=== PATIENT | female | born 1955 | race Caucasian/White ===

== ENCOUNTER 2016-12-12 14:18 | Emergency (ER) | payer BC ==
--- NOTE | 2016-12-12 15:33 | XR ---
EXAMINATION TYPE: XR chest 2V DATE OF EXAM: 12/12/2016 3:24 PM COMPARISON: Today HISTORY: Cough and short of breath TECHNIQUE: Frontal and lateral views of the chest are obtained. FINDINGS: Heart and mediastinum are normal. Lungs are clear. Diaphragm is normal. Bony thorax is int act. IMPRESSION: Normal chest. No change compared to outside exam at 2:00 PM today.
--- NOTE | 2016-12-12 16:15 | ED ---
General Adult HPI - General Chief complaint: Upper Respiratory Infection Stated complaint: Sent by [email or web address] Pneumonia Time Seen by Provider: 12/12/16 15:10 Source: patient, family Mode of arrival: ambulatory Limitations: no limitations - History of Present Illness Initial comments: 61-year-old female with past medical history of hypertension and hysterectomy presented for evaluation of upper respiratory infection symptoms. She states that last Tuesday she started having productive cough with sinus congestion and runny nose. She was seen at an urgent care and diagnosed with a URI/bronchitis and given prednisone and Z-Johnny. She is completed both the steroids and antibiotics but symptoms have continued with the exception that the cough is no longer productive. She was seen at [facility] today and they diagnosed her with pneumonia and center to this ED for further treatment and evaluation. She states that outside of the cough she does not have any shortness of breath or chest pain, nausea or vomiting, abdominal pain, fevers/ chills, dysuria, diarrhea/constipation. - Related Data Home Medications Medication Instructions Recorded Confirmed Azithromycin [Zithromax Z-pack] See Taper PO DAILY 12/12/16 12/12/16 Bisoprolol-Hctz 10-6.25 mg [Ziac 1 tab PO DAILY 12/12/16 12/12/16 10-6.25] Dextromethorphan Polistirex 60 mg PO Q12H PRN 12/12/16 12/12/16 [Delsym] Nebivolol HCl [Bystolic] 10 mg PO HS 12/12/16 12/12/16 SUMAtriptan SUCCINATE [Imitrex] 100 mg PO DAILY PRN 12/12/16 12/12/16 methylPREDNISolone [Medrol Dose See Taper PO DAILY 12/12/16 12/12/16 Pack] Allergies Allergy/AdvReac Type Severity Reaction Status Date / Time No Known Allergies Allergy Verified 12/12/16 15:36 Review of Systems ROS Statement: Those systems with pertinent positive or pertinent negative responses have been documented in the HPI. ROS Other: All systems not noted in ROS Statement are negative. Constitutional: Denies: fever, chills Eyes: Denies: eye pain, vision change ENT: Denies: ear pain, throat pain Respiratory: Reports: cough. Denies: dyspnea, wheezes, hemoptysis Cardiovascular: Denies: chest pain, palpitations, dyspnea on exertion, orthopnea Endocrine: Denies: fatigue, polydipsia, polyuria Gastrointestinal: Denies: abdominal pain, nausea, vomiting Genitourinary: Denies: urgency, dysuria Musculoskeletal: Denies: back pain, arthralgia, myalgia Skin: Denies: rash, lesions Neurological: Denies: headache, weakness, numbness, paresthesias Past Medical History Past Medical History: Hypertension History of Any Multi-Drug Resistant Organisms: None Reported Past Surgical History: Hysterectomy Past Psychological History: No Psychological Hx Reported Smoking Status: Former smoker Past Alcohol Use History: None Reported Past Drug Use History: None Reported General Exam Limitations: no limitations General appearance: alert, in no apparent distress Head exam: Present: atraumatic, normocephalic, normal inspection Eye exam: Present: normal appearance, PERRL, EOMI. Absent: scleral icterus, conjunctival injection, periorbital swelling ENT exam: Present: normal exam, mucous membranes moist Neck exam: Present: normal inspection. Absent: tenderness, meningismus, lymphadenopathy Respiratory exam: Present: normal lung sounds bilaterally. Absent: respiratory distress, wheezes, rales, rhonchi, stridor Cardiovascular Exam: Present: regular rate, normal rhythm, normal heart sounds. Absent: systolic murmur, diastolic murmur, rubs, gallop, clicks GI/Abdominal exam: Present: soft, normal bowel sounds. Absent: distended, tenderness, guarding, rebound, rigid Rectal exam: Present: deferred Extremities exam: Present: normal inspection, full ROM, normal capillary refill. Absent: tenderness, pedal edema, joint swelling, calf tenderness Back exam: Present: normal inspection Neurological exam: Present: alert, oriented X3, CN II-XII intact Psychiatric exam: Present: normal affect, normal mood Skin exam: Present: warm, dry, intact, normal color. Absent: rash Course Vital Signs 12/12/16 14:41 Temperature 98.5 F Pulse Rate 80 Respiratory 18 Rate Blood Pressure 130/76 O2 Sat by Pulse 94 L Oximetry EKG Findings - EKG Comments: EKG Findings:: Normal sinus rhythm with criteria for LVH and a ventricular rate of 74, NILSON 178, QRS 88, QT/QTC 394/437. Medical Decision Making - Medical Decision Making 61-year-old female presented for evaluation of URI symptoms and cough since last Tuesday. She has gone through a course of prednisone and a Z-Johnny with decrease in productivity of cough but otherwise symptoms remain the same. She was seen at [facility] today and diagnosed with pneumonia and sent to this facility. On physical examination she has clear lung sounds bilaterally and the rest of her physical exam is benign. Labs obtained which showed a positive influenza B as well as acute kidney injury. She was informed of these results and offered an IV fluid bolus but stated she would rather go home and taken her fluids orally. She was instructed on the importance of this and advised to follow-up with her primary care physician early this next week to reevaluate the kidney function. She was further advised to return to this facility if her symptoms should worsen or persist including but not limited to: Shortness of breath, intractable nausea and vomiting, dysuria, urinary retention, altered mental status, intractable abdominal pain. The patient acknowledged an understanding of this information and agreed with this plan of care. - Lab Data Result diagrams: 12/12/16 16:05 12/12/16 16:05 Lab Results 12/12/16 12/12/16 12/12/16 Range/Units 15:15 15:15 16:05 WBC (3.8-10.6) k/uL RBC (3.80-5.40) m/uL Hgb (11.4-16.0) gm/dL Hct (34.0-46.0) % MCV (80.0-100.0) fL MCH (25.0-35.0) pg MCHC (31.0-37.0) g/dL RDW (11.5-15.5) % Plt Count (150-450) k/uL Neutrophils % (Manual) % Band Neutrophils % % Lymphocytes % (Manual) % Monocytes % (Manual) % Neutrophils # (Manual) (1.3-7.7) k/uL Lymphocytes # (Manual) (1.0-4.8) k/uL Monocytes # (Manual) (0-1.0) k/uL Nucleated RBCs (0-0) /100 WBC Manual Slide Review Sodium 138 (137-145) mmol/L Potassium 3.9 (3.5-5.1) mmol/L Chloride 95 L (98-107) mmol/L Carbon Dioxide 29 (22-30) mmol/L Anion Gap 14 mmol/L BUN 39 H (7-17) mg/dL Creatinine 1.94 H (0.52-1.04) mg/dL Est GFR (MDRD) Af Amer 32 (>60 ml/min/1.73 sqM) Est GFR (MDRD) Non-Af 26 (>60 ml/min/1.73 sqM) Glucose 141 H (74-99) mg/dL Calcium 9.8 (8.4-10.2) mg/dL Influenza Type A RNA Not Detected (Not Detectd) Influenza Type B (PCR) Detected H (Not Detectd) Group A Strep Rapid Negative (Negative) 12/12/16 Range/Units 16:05 WBC 6.9 (3.8-10.6) k/uL RBC 5.76 H (3.80-5.40) m/uL Hgb 15.7 (11.4-16.0) gm/dL Hct 47.7 H (34.0-46.0) % MCV 82.9 (80.0-100.0) fL MCH 27.3 (25.0-35.0) pg MCHC 32.9 (31.0-37.0) g/dL RDW 13.6 (11.5-15.5) % Plt Count 320 (150-450) k/uL Neutrophils % (Manual) 44.0 % Band Neutrophils % 1.0 % Lymphocytes % (Manual) 54.0 % Monocytes % (Manual) 1.0 % Neutrophils # (Manual) 3.1 (1.3-7.7) k/uL Lymphocytes # (Manual) 3.7 (1.0-4.8) k/uL Monocytes # (Manual) 0.1 (0-1.0) k/uL Nucleated RBCs 0 (0-0) /100 WBC Manual Slide Review Performed Sodium (137-145) mmol/L Potassium (3.5-5.1) mmol/L Chloride (98-107) mmol/L Carbon Dioxide (22-30) mmol/L Anion Gap mmol/L BUN (7-17) mg/dL Creatinine (0.52-1.04) mg/dL Est GFR (MDRD) Af Amer (>60 ml/min/1.73 sqM) Est GFR (MDRD) Non-Af (>60 ml/min/1.73 sqM) Glucose (74-99) mg/dL Calcium (8.4-10.2) mg/dL Influenza Type A RNA (Not Detectd) Influenza Type B (PCR) (Not Detectd) Group A Strep Rapid (Negative) Disposition Clinical Impression: Influenza B, BISI (acute kidney injury), Dehydration Disposition: HOME SELF-CARE Condition: Stable Instructions: Influenza (ED), Dehydration (ED) Time of Disposition: 16:56
[2016-12-12 16:24] LABS: Aty Lym Flag Slight; CH 28.1; HCT 47.7 % (34.0-46.0); HDW 2.55; HGB 15.7 gm/dL (11.4-16.0); MCH 27.3 pg (25.0-35.0); MCHC 32.9 g/dL (31.0-37.0); MCV 82.9 fL (80.0-100.0); Mean Platelet Volume 6.8; RBC 5.76 m/uL (3.80-5.40); RDW 13.6 % (11.5-15.5); WBC 6.9 k/uL (3.8-10.6); WBC (Perox) 6.58
[2016-12-12 16:29] LABS: Calcium 9.8 mg/dL (8.4-10.2); Potassium 3.9 mmol/L (3.5-5.1)
[2016-12-12 16:45] LABS: Add Differential Manual Differential
[2016-12-12 16:48] LABS: Nucleated Red Blood Cells 0 /100 WBC (0-0); Total Cells Counted 100
[2016-12-12 16:49] LABS: Manual Review Performed
[2016-12-12 17:14] VITALS: BP 137/88; PULSE 78; RESP 20; TEMP 97.7
== END 2016-12-12 17:15 | disposition home or self-care (01) ==
LOC: EC 14:18
DX: J10.1 Influenza due to other identified influenza virus with other respiratory manifestations (principal); N17.9 Acute kidney failure, unspecified; E86.0 Dehydration; I10 Essential (primary) hypertension; Z87.891 Personal history of nicotine dependence; Z79.899 Other long term (current) drug therapy
CPT/HCPCS: 36415; 71020; 80048; 85025; 87081; 87430; 87502; 93005; 99283

== ENCOUNTER → 2017-08-24 | Outpatient (CLI) | payer BC ==
--- NOTE | 2017-08-25 13:16 | BD ---
EXAMINATION TYPE: MG DEXA axial skeleton. DATE OF EXAM: 08/24/2017 COMPARISON: NONE CLINICAL HISTORY: osteoporosis Height: 5'7 Weight: 242 FRAX RISK QUESTIONS: Alcohol (3 or more units per day): no Family History (Parent hip fracture): no Glucocorticoids (More than 3mos): no (Ex: prednisone, prednisolone, methylprednisolone, dexamethasone, and hydrocortisone). History of Fracture in Adulthood: yes Secondary Osteoporosis: 1. Type 1 Diabetes: no 2. Hyperthyroidism: no 3. Menopause before 45: no 4. Malnutrition: no 5. Chronic liver disease: no Rheumatoid Arthritis: no Current Tobacco Use: no RISK FACTORS HISTORY OF: History of Wrist Fracture: left When: 20 years ago Active: Diet low in dairy products/other sources of calcium: Postmenopausal woman: MEDICATIONS: Thyroid Medications: Which medication: Levothyroxine How Lon05/2017 Additional Medications: type 2 diabetes, blood pressure, Additional History: EXAM MEASUREMENTS: Bone mineral densitometry was performed using the [employer] System. Bone mineral density as measured about the Lumbar spine is: ----- L1-L4(G/cm2): 1.137 T Score Values are as follows: ----- L2: -0.8 ----- L3: -0.5 ----- L4: -0.1 ----- L1-L4: -0.4 Bone mineral density about the R hip (g/cm2): 0.985 Bone mineral density about the L hip (g/cm2): 0.936 T Score values are as follows: -----R Neck: -0.4 -----L Neck: -0.7 -----R Total: -0.3 -----L Total: 0.0 IMPRESSION: Normal (Values between +1 and -1 indicate normal bone mass). Consider repeating this study in 5 year s or sooner if there is some new clinical indication. NOTE: T-SCORE=SD OF THE YOUNG ADULT MEAN.
--- NOTE | 2017-08-26 11:00 | MM ---
Reason for exam: screening (asymptomatic). Last mammogram was performed 1 year and 1 month ago. History: Family history of breast cancer in maternal aunt and breast cancer in sister at age 50. Benign right US cyst aspiration of the right breast, June 01, 2010. Benign left mammotome panel of the left breast, September 19, 2006. Took hormonal contraceptives for 12 years beginning at age 18. Took estrogen for 6 years 2 months beginning at age 52. Physical Findings: A clinical breast exam by your physician is recommended on an annual basis and results should be correlated with mammographic findings. MG Screening Mammo w CAD Bilateral CC and MLO view(s) were taken. Prior study comparison: July 28, 2016, bilateral MG screening mammo w CAD. May 13, 2015, bilateral MG screening mammo w CAD. There are scattered fibroglandular densities. Finding: There are typically benign diffuse, regional, fine calcifications in the right breast. Previous mammotome biopsy in the left breast. No significant changes in finding since July 28, 2016 and May 13, 2015. ASSESSMENT: Benign, BI-RAD 2 RECOMMENDATION: Routine screening mammogram of both breasts in 1 year.
== END | disposition home or self-care (01) ==
LOC: RADMAMWWP 15:40
PROVIDERS: ATTEND Family Medicine
DX: Z12.31 Encounter for screening mammogram for malignant neoplasm of breast (principal); M81.0 Age-related osteoporosis without current pathological fracture
CPT/HCPCS: 77080; G0202

== ENCOUNTER 2017-11-18 07:09 | Day surgery (SDC) | payer BC ==
[2017-11-15 12:48] VITALS: BMI 36.1
[~2017-11-18 07:09] MED LIST: LACTATED RINGERS 1,000 ML IV SCH
[2017-11-18 07:33] VITALS: TEMP 96.2
[2017-11-18] MEDS ORDERED: LIDOCAINE 1% 20 ML VIAL (10MG/ML) FOR IV START INTRADERMA ONE (07:41)
[2017-11-18 07:45] LABS: Glucose,Whole Blood 119 mg/dL (75-99)
[2017-11-18] MEDS ORDERED: LIDOCAINE 1% INJ 10MG/ML (20 ML MDV) ONE (09:01)
[2017-11-18] MEDS ORDERED: PROPOFOL 10 MG/ML 20 ML VIAL IV ONE (09:01)
--- NOTE | 2017-11-18 09:16 | P.GSHP ---
History of Present Illness H&P Date: 11/18/17 Chief Complaint: Colon cancer screening Patient here today for colonoscopy. She had a cologgard test at home that was positive. Denies rectal bleeding or melena. No family history of colon cancer. Past Medical History Past Medical History: Diabetes Mellitus, Hypertension, Neurologic Disorder, Thyroid Disorder Additional Past Medical History / Comment(s): MIGRAINES History of Any Multi-Drug Resistant Organisms: None Reported Past Surgical History: Hysterectomy Past Anesthesia/Blood Transfusion Reactions: No Reported Reaction Smoking Status: Former smoker - Past Family History Sister(s) Family Medical History: Cancer Additional Family Medical History / Comment(s): SISTER # 1-BREAST. SISTER # 2 THYROID CANCER Daughter(s) Family Medical History: Cancer Medications and Allergies Home Medications Medication Instructions Recorded Confirmed Type SUMAtriptan SUCCINATE [Imitrex] 100 mg PO DAILY PRN 12/12/16 11/18/17 History Bisoprol/Hydrochlorothiazide 1 each PO DAILY 11/15/17 11/15/17 History [Bisoprolol-Hctz 10-6.25 mg Tab] Cinnamon Bark [Cinnamon] 1,000 mg PO DAILY 11/15/17 11/15/17 History Levothyroxine Sodium [Synthroid] 25 mcg PO DAILY 11/15/17 11/15/17 History Metoprolol Tartrate [Lopressor] 50 mg PO HS 11/15/17 11/18/17 History Milk Thistle 240 mg PO DAILY 11/15/17 11/15/17 History Multivit-Min/Iron/Folic/Lutein 1 each PO DAILY 11/15/17 11/15/17 History [Centrum Silver Women Tablet] Omeprazole 20 mg PO DAILY 11/15/17 11/15/17 History amLODIPine [Norvasc] 10 mg PO DAILY 11/15/17 11/18/17 History sitaGLIPtin PHOS/metFORMIN HCL 1 tab PO PC-SUPPER 11/15/17 11/18/17 History [Janumet 50-500 mg Tablet] Allergies Allergy/AdvReac Type Severity Reaction Status Date / Time No Known Allergies Allergy Verified 11/15/17 12:39 Surgical - Exam Vital Signs Temp Pulse Resp BP Pulse Ox 96.2 F L 72 16 173/86 96 11/18/17 07:32 11/18/17 07:32 03/23/18 07:32 11/18/17 07:32 11/18/17 07:32 Physical exam: General: Well-developed, well-nourished HEENT: Normocephalic, sclerae nonicteric Abdomen: Nontender, nondistended Extremities: No edema Neuro: Alert and oriented Results - Labs Abnormal Lab Results - Last 24 Hours (Table) 11/18/17 Range/Units 07:37 POC Glucose (mg/dL) 119 H (75-99) mg/dL Assessment and Plan (1) Colon cancer screening Narrative/Plan: Will proceed with colonoscopy at this time. Current Visit: Yes Status: Acute Code(s): Z12.11 - ENCOUNTER FOR SCREENING FOR MALIGNANT NEOPLASM OF COLON SNOMED Code(s): 984100062
--- NOTE | 2017-11-18 09:39 | P.PCN ---
Date of Procedure: 11/18/17 Procedure(s) Performed: PREOPERATIVE DIAGNOSIS: Colon cancer screening, abnormal cologuard POSTOPERATIVE DIAGNOSIS: Ileocecal valve lesion, sigmoid polyp, mild diverticulosis PROCEDURE: Colonoscopy with snare polypectomy and biopsy ANESTHESIA: MAC SURGEON: Abdelrahman López M.D. SPECIMENS: Ileocecal valve lesion, sigmoid polyp ENDOSCOPIC PROCEDURE: The patient was placed on the endoscopy table in the left decubitus position. The Olympus colonoscope was inserted into the anus and passed under direct visualization to the base of the cecum. The appendiceal orifice was visualized. From that point the scope was slowly withdrawn inspecting all surfaces carefully. At the ileocecal valve itself there was a polypoid appearing lesion. This was somewhat friable. This was biopsied numerous times using the cold biopsy forceps. I could not get a complete view of this and this may have represented a portion of mucosal from the ileum. The remainder of the cecum and ascending transverse and descending colon appeared normal. In the sigmoid there was a small polyp that was removed using the snare with cautery technique. The remainder of the sigmoid and rectum was normal. There was mild diverticulosis seen in the left colon. Digital rectal examination was normal. The patient was taken to the recovery room in stable condition per anesthesia guidelines. RECOMMENDATIONS: Biopsy results.
[2017-11-18 09:56] VITALS: BP 161/80; PULSE 64; RESP 16
== END 2017-11-18 10:34 | disposition home or self-care (01) ==
LOC: ORWHC2ENDO 07:09
PROVIDERS: ATTEND Surgery
DX: D12.0 Benign neoplasm of cecum (principal); K63.5 Polyp of colon; K57.90 Diverticulosis of intestine, part unspecified, without perforation or abscess without bleeding; E11.9 Type 2 diabetes mellitus without complications; Z79.84 Long term (current) use of oral hypoglycemic drugs; I10 Essential (primary) hypertension; E07.9 Disorder of thyroid, unspecified; G43.909 Migraine, unspecified, not intractable, without status migrainosus; Z87.891 Personal history of nicotine dependence; Z79.899 Other long term (current) drug therapy
CPT/HCPCS: 88305; 45380; 45385; J2001; J2704

== ENCOUNTER → 2018-10-13 | Outpatient (CLI) | payer BC ==
--- NOTE | 2018-10-17 09:27 | MM ---
Reason for exam: screening (asymptomatic). Last mammogram was performed 1 year and 2 months ago. History: Family history of breast cancer in maternal aunt and breast cancer in sister at age 50. Benign right US cyst aspiration of the right breast, June 01, 2010. Benign left mammotome panel of the left breast, September 19, 2006. Took hormonal contraceptives for 12 years beginning at age 18. Took estrogen for 6 years 2 months beginning at age 52. Physical Findings: A clinical breast exam by your physician is recommended on an annual basis and results should be correlated with mammographic findings. MG Screening Mammo w CAD Bilateral CC and MLO view(s) were taken. Prior study comparison: August 24, 2017, bilateral MG screening mammo w CAD. July 28, 2016, bilateral MG screening mammo w CAD. There are scattered fibroglandular densities. Previous mammotome biopsy in the left breast. No significant changes when compared with prior studies. ASSESSMENT: Negative, BI-RAD 1 RECOMMENDATION: Routine screening mammogram of both breasts in 1 year.
== END | disposition home or self-care (01) ==
LOC: RADMAMWWP 11:29
PROVIDERS: ATTEND Family Medicine
DX: Z12.31 Encounter for screening mammogram for malignant neoplasm of breast (principal)
CPT/HCPCS: 77067

== ENCOUNTER → 2018-12-26 | Outpatient (CLI) | payer BC ==
--- NOTE | 2018-12-26 16:19 | XR ---
EXAMINATION TYPE: XR chest 2V DATE OF EXAM: 12/26/2018 COMPARISON: 12/12/2016 TECHNIQUE: PA and lateral views submitted. HISTORY: Pain FINDINGS: The lungs are clear and there is no pneumothorax, pleural effusion, or focal pneumonia. Biapical pl eural thickening. Degenerative change of the spine. Hyperinflation of the lungs. IMPRESSION: 1. No acute process.
== END | disposition home or self-care (01) ==
LOC: RADXRMAIN 14:13
PROVIDERS: ATTEND Family Medicine
DX: I10 Essential (primary) hypertension (principal)
CPT/HCPCS: 71046

== ENCOUNTER → 2019-03-23 | Outpatient (CLI) | payer BC ==
[2019-03-23 10:16] LABS: Anisocytosis Slight; HCT 33.2 % (34.0-46.0); HGB 10.1 gm/dL (11.4-16.0); Hypochromasia Moderate; MCH 21.3 pg (25.0-35.0); MCHC 30.3 g/dL (31.0-37.0); MCV 70.2 fL (80.0-100.0); Mean Platelet Volume 6.8; Microcytosis Marked; Platelet Count 479 k/uL (150-450); RBC 4.73 m/uL (3.80-5.40); RDW 16.3 % (11.5-15.5); WBC 7.4 k/uL (3.8-10.6)
[2019-03-23 10:27] LABS: Albumin 4.5 g/dL (3.5-5.0); Calcium 9.4 mg/dL (8.4-10.2); Magnesium 1.8 mg/dL (1.6-2.3); Phosphorus 3.8 mg/dL (2.5-4.5); Potassium 4.3 mmol/L (3.5-5.1); Total Bilirubin 0.4 mg/dL (0.2-1.3); Total Protein 7.9 g/dL (6.3-8.2)
[2019-03-23 10:37] LABS: INR 0.9 (<1.2); Prothrombin Time 9.6 sec (9.0-12.0)
--- NOTE | 2019-03-23 11:11 | CT ---
EXAMINATION TYPE: CT abdomen pelvis w con DATE OF EXAM: 03/23/2019 COMPARISON: None HISTORY: Malignant neoplasm of cecum. CT DLP: 1193.3 mGycm CONTRAST: CT scan of the abdomen and pelvis is performed with Oral Contrast and with IV Contrast, patient injec leeanne with 100 mL of Isovue 300. FINDINGS: LUNG BASES-: No visible nodule. No infiltrate. Small sliding-type hiatal hernia noted. LIVER/GB: No calcified gallstones. No space occupying hepatic lesion. Biliary tree is of normal ca liber. PANCREAS: No inflammation. No distinct mass. SPLEEN: No splenic enlargement. No lesion seen. ADRENALS: No nodule. No thickening. KIDNEYS/BLADDER: No hydronephrosis. No nephrolithiasis. No distinct renal mass. Urinary bladder g rossly unremarkable. BOWEL: No evidence for cecal mass. Correlate with endoscopic findings. Normal appendix. Normal bowel caliber. No inflammation. GENITAL ORGANS: Hysterectomy changes noted. LYMPH NODES: No greater than 1cm abdominal or pelvic lymph nodes are appreciated. AORTA: No significant abnormality. OSSEOUS STRUCTURES: No significant abnormality is seen. OTHER: No significant additional abnormality is seen. IMPRESSION: 1. No evidence for cecal mass. Correlate with endoscopic findings. 2. No evidence for hepatic lesion. 3. Small hiatal hernia noted.
--- NOTE | 2019-03-23 12:39 | FL ---
ESOPHOGRAM. HISTORY: Dysphagia Esophagram was performed per the air contrast technique. The patient swallowed barium and effervesce nt crystals without difficulty or delay. Esophageal peristalsis and motility appear to be within normal limits. There is no evidence for filling defect, mass or diverticulum. Small sliding-type hiatal hernia noted. Subsequently single contrast cervical esophagram was performed which fails demonstrate evidence for a spiration penetration or mass. IMPRESSION: Small sliding-type hiatal hernia noted. Otherwise unremarkable study.
[2019-03-23 17:13] LABS: Vitamin D 25 Hydroxy 28.8 ng/mL (30.0-100.0)
[2019-03-23 17:22] LABS: Folate, Serum >24.0 ng/mL
[2019-03-26 15:32] LABS: Zinc, Serum 76 ug/dL (60-130)
[2019-03-27 06:21] LABS: Vitamin A 70 ug/dL (38-106)
[2019-03-27 12:54] LABS: Vit B1(Thiamine) 88 ug/L (38-122)
[2019-03-27 18:12] LABS: Selenium 115 mcg/L (63-160)
== END | disposition home or self-care (01) ==
LOC: RADCTMAIN 07:52
PROVIDERS: ATTEND Surgery Plastic and Reconstructive Surgery
DX: K44.9 Diaphragmatic hernia without obstruction or gangrene (principal); E21.1 Secondary hyperparathyroidism, not elsewhere classified; E89.1 Postprocedural hypoinsulinemia; D50.8 Other iron deficiency anemias; K90.89 Other intestinal malabsorption; E55.9 Vitamin D deficiency, unspecified; K76.9 Liver disease, unspecified; N19 Unspecified kidney failure; K50.90 Crohn's disease, unspecified, without complications
CPT/HCPCS: 84255; 84134; 84425; 80061; 80053; 82607; 82728; 82525; 82746; 83540; 83550; 83735; 84100; 84443; 84590; 84630; 85027; 85610; 85730; 82306; 83970; 74220; 74177; 36415; Q9967

== ENCOUNTER 2019-04-04 08:33 | Day surgery (SDC) | payer BC ==
[2019-03-29 15:39] VITALS: BMI 36.1
[~2019-04-04 08:33] MED LIST changes: +LIDOCAINE 1% 20 ML VIAL (10MG/ML) FOR IV START INTRADERMA PRN
[2019-04-04 08:55] VITALS: TEMP 97.9
[2019-04-04 09:00] LABS: Glucose,Whole Blood 119 mg/dL (75-99)
[2019-04-04] MEDS ORDERED: PROPOFOL 10 MG/ML 20 ML VIAL IV ONE (09:39)
--- NOTE | 2019-04-04 09:44 | P.GSHP ---
History of Present Illness H&P Date: 04/04/19 CHIEF COMPLAINT: GERD and malignant colon polyp HISTORY OF PRESENT ILLNESS: The patient is a 63-year-old female who presents with gastroesophageal reflux disease and malignant colon polyp. Upper and lower endoscopy were offered for further evaluation and management. PAST MEDICAL HISTORY: Please see list. PAST SURGICAL HISTORY: Please see list. MEDICATIONS: Please see list. ALLERGIES: Please see list. SOCIAL HISTORY: No illicit drug use FAMILY HISTORY: No reports of Crohn disease or ulcerative colitis. REVIEW OF ORGAN SYSTEMS: CONSTITUTIONAL: No reports of fevers or chills. GI: Denies any blood in stools or constipation. PHYSICAL EXAM: VITAL SIGNS: Stable GENERAL: Well-developed pleasant in no acute distress. HEENT: No scleral icterus. Extraocular movements grossly intact. Moist buccal mucosa. NECK: Supple without lymphadenopathy. CHEST: Unlabored respirations. Equal bilateral excursions. CARDIOVASCULAR: Regular rate and rhythm. Distal 2+ pulses. ABDOMEN: Soft, nondistended. MUSCULOSKELETAL: No clubbing, cyanosis, or edema. ASSESSMENT: 1. Gastroesophageal reflux disease 2. Malignant colon polyp PLAN: 1. Recommend proceeding with an upper and lower endoscopy Past Medical History Past Medical History: Diabetes Mellitus, GERD/Reflux, Hyperlipidemia, Hypertension, Thyroid Disorder Additional Past Medical History / Comment(s): aggressive polyp, hx anemia, hx of back spasms, hx migraines History of Any Multi-Drug Resistant Organisms: None Reported Past Surgical History: Hysterectomy Additional Past Surgical History / Comment(s): mult. colonoscopies Past Anesthesia/Blood Transfusion Reactions: No Reported Reaction Smoking Status: Former smoker Medications and Allergies Home Medications Medication Instructions Recorded Confirmed Type SUMAtriptan SUCCINATE [Imitrex] 100 mg PO DAILY PRN 12/12/16 03/29/19 History Bisoprol/Hydrochlorothiazide 1 each PO DAILY 11/15/17 03/29/19 History [Bisoprolol-Hctz 10-6.25 mg Tab] Metoprolol Tartrate [Lopressor] 50 mg PO HS 11/15/17 04/04/19 History Multivit-Min/Iron/Folic/Lutein 1 each PO DAILY 11/15/17 03/29/19 History [Centrum Silver Women Tablet] Omeprazole 20 mg PO DAILY 11/15/17 03/29/19 History amLODIPine [Norvasc] 10 mg PO DAILY 11/15/17 04/04/19 History ALPRAZolam [Xanax] 1 mg PO TID PRN 03/29/19 03/29/19 History Cholecalciferol (Vitamin D3) 4,000 unit PO DAILY 03/29/19 03/29/19 History [Vitamin D3] Cyclobenzaprine [Flexeril] 10 mg PO HS PRN 03/29/19 03/29/19 History Ferrous Sulfate [Iron] 325 mg PO DAILY 03/29/19 03/29/19 History Levothyroxine Sodium [Synthroid] 50 mcg PO DAILY 03/29/19 04/04/19 History Rosuvastatin Calcium 5 mg PO Q48H 03/29/19 03/29/19 History metFORMIN HCL [Glucophage Xr] 500 mg PO TID 03/29/19 03/29/19 History traMADol HCL [Ultram] 50 mg PO HS PRN 03/29/19 03/29/19 History Allergies Allergy/AdvReac Type Severity Reaction Status Date / Time No Known Allergies Allergy Verified 04/04/19 08:48 Surgical - Exam Vital Signs Temp Pulse Resp BP Pulse Ox 97.9 F 75 17 186/88 97 04/04/19 08:54 04/04/19 08:54 04/04/19 08:54 04/04/19 08:54 04/04/19 08:54 Results - Labs Abnormal Lab Results - Last 24 Hours (Table) 04/04/19 Range/Units 08:56 POC Glucose (mg/dL) 119 H (75-99) mg/dL
--- NOTE | 2019-04-04 09:53 | P.PCN ---
Date of Procedure: 04/04/19 Description of Procedure: PREOPERATIVE DIAGNOSIS: Gastroesophageal reflux disease. Morbid obesity. POSTOPERATIVE DIAGNOSIS: Morbid obesity. Gastritis, acute and superficial without bleeding Gastroesophageal reflux disease. Gastric polyps OPERATION: Esophagogastroduodenoscopy with biopsies along antrum. SURGEON: Chantel Thornton MD ANESTHESIA: MAC. INDICATIONS: The patient is a 63-year-old female who presents with a history of reflux disease. Benefits and risks of the procedure were described. Informed consent was obtained. DESCRIPTION: The patient was brought into the endoscopy suite and laid in the left lateral decubitus position. An Olympus gastroscope was passed along the posterior oroph arynx down to the distal esophagus where the squamocolumnar junction was encountered at 40 cm from the incisors. The stomach was entered and no bile reflux was found. Additional findings are listed below. Biopsies with cold forceps were obtained of the antrum. The first through third portion of the duodenum was examined and unremarkable. Retroflexion of the scope confirmed Hill grade 2 lower esophageal valve. The squamocolumnar junction demonstrated LA grade A erosive esophagitis. The stomach was desufflated. The patient tolerated the procedure well. FINDINGS: Squamocolumnar junction 40 cm from the incisors. Diaphragmatic hiatus at 40 cm. Hill grade 2 lower esophageal valve. LA grade A erosive esophagitis. No active duodenitis. Acute gastritis without bleeding Few gastric polyps, hyperplastic along the fundus RECOMMENDATIONS: Upper endoscopy as needed.
[2019-04-04 10:19] VITALS: RESP 16
--- NOTE | 2019-04-04 10:25 | P.PCN ---
Date of Procedure: 04/04/19 Description of Procedure: PREOPERATIVE DIAGNOSIS: History of malignant cecal polyp Colonoscopy screening POSTOPERATIVE DIAGNOSIS: History of malignant cecal polyp Colonoscopy screening Sigmoid colon polyp OPERATION: Colonoscopy to the ileocecal valve and appendiceal orifice. Colonoscopy with polypectomy using cold forceps biopsy SURGEON: Chantel Thornton MD. ANESTHESIA: MAC. INDICATIONS: The patient is a 63-year-old female who presents for colonoscopy screening. Benefits and risks were described and informed consent was obtained. DESCRIPTION OF PROCEDURE: The patient had undergone Suprep. Se had been brought into the operating room and laid in the left lateral decubitus position. After adequate intravenous sedation, the rectum was examined with 2% lidocaine jelly. No external hemorrhoids were encountered. The rectal tone was within normal limits. No lesions were palpated in the rectal vault. An Olympus colonoscope was advanced until the ileocecal valve and appendiceal orifice were clearly viewed. The prep was excellent with visualization of the mucosal folds. Sigmoid diverticulosis was encountered. At 20 cm from the anal verge, sigmoid colonic polyp 4-mm was remived with cold forcep biopsy. No evidence of focal colitis was found. Retroflexion of the scope demonstrated grade 1 internal hemorrhoids without active bleeding or inflammation. The colon was desufflated. The patient had tolerated the procedure well. Withdrawal time was over 6 minutes. FINDINGS: Aronchick preparation quality scale 1 (1-5) Internal hemorrhoids, grade 1 No external hemorrhoids No arteriovenous malformations Sigmoid diverticulosis No polyps found along the ascending colon. No regrowth of adenoma along the cecum or ileocecal valve or at appendiceal orifice Removal of 1 polyp: - Cold forceps biopsy at 25 cm from the anal verge, 4 mm polyp. No focal colitis. RECOMMENDATIONS: Given severity of tubular adenomas, recommend repeat colonoscopy 2 years, 2020. Plan - Discharge Summary Discharge Rx Participant: No New Discharge Prescriptions: No Action SUMAtriptan SUCCINATE [Imitrex] 100 mg PO DAILY PRN PRN Reason: Migraine Headache amLODIPine [Norvasc] 10 mg PO DAILY Bisoprol/Hydrochlorothiazide [Bisoprolol-Hctz 10-6.25 mg Tab] 1 each PO DAILY Omeprazole 20 mg PO DAILY Multivit-Min/Iron/Folic/Lutein [Centrum Silver Women Tablet] 1 each PO DAILY Metoprolol Tartrate [Lopressor] 50 mg PO HS Levothyroxine Sodium [Synthroid] 50 mcg PO DAILY Ferrous Sulfate [Iron] 325 mg PO DAILY Cholecalciferol (Vitamin D3) [Vitamin D3] 4,000 unit PO DAILY traMADol HCL [Ultram] 50 mg PO HS PRN PRN Reason: Pain metFORMIN HCL [Glucophage Xr] 500 mg PO TID Rosuvastatin Calcium 5 mg PO Q48H Cyclobenzaprine [Flexeril] 10 mg PO HS PRN PRN Reason: back spasm ALPRAZolam [Xanax] 1 mg PO TID PRN PRN Reason: Anxiety Discharge Medication List SUMAtriptan SUCCINATE [Imitrex] 100 mg PO DAILY PRN 12/12/16 [History] Bisoprol/Hydrochlorothiazide [Bisoprolol-Hctz 10-6.25 mg Tab] 1 each PO DAILY 11/15/17 [History] Metoprolol Tartrate [Lopressor] 50 mg PO HS 11/15/17 [History] Multivit-Min/Iron/Folic/Lutein [Centrum Silver Women Tablet] 1 each PO DAILY [History] Omeprazole 20 mg PO DAILY 11/15/17 [History] amLODIPine [Norvasc] 10 mg PO DAILY 11/15/17 [History] ALPRAZolam [Xanax] 1 mg PO TID PRN 03/29/19 [History] Cholecalciferol (Vitamin D3) [Vitamin D3] 4,000 unit PO DAILY 03/29/19 [History] Cyclobenzaprine [Flexeril] 10 mg PO HS PRN 03/29/19 [History] Ferrous Sulfate [Iron] 325 mg PO DAILY 03/29/19 [History] Levothyroxine Sodium [Synthroid] 50 mcg PO DAILY 03/29/19 [History] Rosuvastatin Calcium 5 mg PO Q48H 03/29/19 [History] metFORMIN HCL [Glucophage Xr] 500 mg PO TID 03/29/19 [History] traMADol HCL [Ultram] 50 mg PO HS PRN 03/29/19 [History] Follow up Appointment(s)/Referral(s): Chantel Thornton MD [STAFF PHYSICIAN] - 05/01/19 Patient Instructions/Handouts: Diverticulosis (DC), Colorectal Polyps (DC), Diverticulosis Diet (GEN) Activity/Diet/Wound Care/Special Instructions: Repeat colonoscopy in 2 years, 2020 Discharge Disposition: HOME SELF-CARE
[2019-04-04 10:36] VITALS: BP 144/85; PULSE 74
== END 2019-04-04 11:08 | disposition home or self-care (01) ==
LOC: ORWHC2ENDO 08:33
PROVIDERS: ATTEND Surgery Plastic and Reconstructive Surgery
DX: Z12.11 Encounter for screening for malignant neoplasm of colon (principal); Z85.038 Personal history of other malignant neoplasm of large intestine; D12.5 Benign neoplasm of sigmoid colon; K29.00 Acute gastritis without bleeding; K57.30 Diverticulosis of large intestine without perforation or abscess without bleeding; K31.7 Polyp of stomach and duodenum; E07.9 Disorder of thyroid, unspecified; K21.0 Gastro-esophageal reflux disease with esophagitis; E11.9 Type 2 diabetes mellitus without complications; E66.01 Morbid (severe) obesity due to excess calories; E78.5 Hyperlipidemia, unspecified; Z68.36 Body mass index [BMI] 36.0-36.9, adult; I10 Essential (primary) hypertension; K29.50 Unspecified chronic gastritis without bleeding; Z87.891 Personal history of nicotine dependence; Z79.899 Other long term (current) drug therapy; Z79.890 Hormone replacement therapy
CPT/HCPCS: 88305; 45380; 43239; J2704

== ENCOUNTER → 2020-02-20 | Outpatient (CLI) | payer BC ==
--- NOTE | 2020-02-21 12:06 | MM ---
Reason for exam: screening (asymptomatic). Last mammogram was performed 1 year and 4 months ago. History: Family history of breast cancer in maternal aunt and breast cancer in sister at age 50. Benign right US cyst aspiration of the right breast, June 01, 2010. Benign left mammotome panel of the left breast, September 19, 2006. Took hormonal contraceptives for 12 years beginning at age 18. Took estrogen for 6 years 2 months beginning at age 52. Physical Findings: A clinical breast exam by your physician is recommended on an annual basis and results should be correlated with mammographic findings. MG Screening Mammo w CAD Bilateral CC and MLO view(s) were taken. Prior study comparison: October 13, 2018, bilateral MG screening mammo w CAD. August 24, 2017, bilateral MG screening mammo w CAD. The breast tissue is heterogeneously dense. This may lower the sensitivity of mammography. Finding #1: There is a 8 mm obscured oval mass located 4 cm from the nipple in the upper outer quadrant, anterior position of the right breast. Finding #2: There are typically benign round, regional calcifications in the anterior position of the right breast. Previous mammotome biopsy in the left breast. New finding since October 13, 2018 and August 24, 2017. ASSESSMENT: Incomplete: need additional imaging evaluation, BI-RAD 0 RECOMMENDATION: Special view mammogram of the right breast. If lesion persists on supplemental views, image directed ultrasound is recommended. [facility] will attempt to contact patient to return for supplemental views and ultrasound if indicated.
== END | disposition home or self-care (01) ==
LOC: RADMAMWWP 10:46
PROVIDERS: ATTEND Family Medicine
DX: Z12.31 Encounter for screening mammogram for malignant neoplasm of breast (principal); Z80.3 Family history of malignant neoplasm of breast
CPT/HCPCS: 77067

== ENCOUNTER → 2020-03-06 | Outpatient (CLI) | payer BC ==
--- NOTE | 2020-03-06 14:54 | MM ---
Reason for exam: additional evaluation requested from abnormal screening. Last mammogram was performed less than 1 month ago. History: Family history of breast cancer in maternal aunt and breast cancer in sister at age 50. Benign right US cyst aspiration of the right breast, June 01, 2010. Benign left mammotome panel of the left breast, September 19, 2006. Took hormonal contraceptives for 12 years beginning at age 18. Took estrogen for 6 years 2 months beginning at age 52. Physical Findings: Nurse did not find any significant physical abnormalities on exam. MG Work Up Mamm w CAD RT Spot compression CC, spot compression MLO, and LM view(s) were taken of the right breast. Prior study comparison: February 20, 2020, bilateral MG screening mammo w CAD. October 13, 2018, bilateral MG screening mammo w CAD. The breast tissue is heterogeneously dense. This may lower the sensitivity of mammography. 9mm circumscribed nodular asymmetry laterally at a middle depth persists on spot CC. Probably 11 o'clock on LM. Not well seen on spot MLO. These results were verbally communicated with the patient and result sheet given to the patient on 03/06/20. ASSESSMENT: Incomplete: need additional imaging evaluation, BI-RAD 0 RECOMMENDATION: Ultrasound of the right breast. (9-1 o'clock)
--- NOTE | 2020-03-06 14:56 | USB ---
Reason for exam: additional evaluation requested from abnormal screening. History: Family history of breast cancer in maternal aunt and breast cancer in sister at age 50. Benign right US cyst aspiration of the right breast, June 01, 2010. Benign left mammotome panel of the left breast, September 19, 2006. Took hormonal contraceptives for 12 years beginning at age 18. Took estrogen for 6 years 2 months beginning at age 52. US Breast Workup Limited RT Right limited breast ultrasound including focal area of concern, retroareolar and axilla demonstrates a 0.9 x 0.5 x 0.6cm hypoechoic lesion at 11 o'clock but with poserior through transmission. Suspect a deep cyst with artifact or debris. Likely corresponds to the mammographic finding. Scanned 9-12 o'clock. These results were verbally communicated with the patient and result sheet given to the patient on 03/06/20. ASSESSMENT: Probably benign, BI-RAD 3 RECOMMENDATION: Follow-up diagnostic mammogram and ultrasound of the right breast in 6 months.
== END | disposition home or self-care (01) ==
LOC: RADMAMWWP 13:34
PROVIDERS: ATTEND Family Medicine
DX: R92.8 Other abnormal and inconclusive findings on diagnostic imaging of breast (principal)
CPT/HCPCS: 77065

== ENCOUNTER → 2021-01-16 | Outpatient (CLI) | payer MEDICARE ==
--- NOTE | 2021-01-16 10:17 | MM ---
Reason for exam: additional evaluation requested from abnormal screening. Last mammogram was performed 10 months ago. History: Family history of breast cancer in maternal aunt and breast cancer in sister at age 50. Benign right US cyst aspiration of the right breast, June 01, 2010. Benign left mammotome panel of the left breast, September 19, 2006. Took hormonal contraceptives for 12 years beginning at age 18. Took estrogen for 6 years 2 months beginning at age 52. Physical Findings: Nurse did not find any significant physical abnormalities on exam. MG Diagnostic Mammo RT w CAD CC, MLO, and XCCL view(s) were taken of the right breast. Prior study comparison: March 06, 2020, right breast MG work up mamm w CAD RT. February 20, 2020, bilateral MG screening mammo w CAD. The breast tissue is heterogeneously dense. This may lower the sensitivity of mammography. No significant new findings when compared with previous films. These results were verbally communicated with the patient and result sheet given to the patient on 01/16/21. ASSESSMENT: Incomplete: need additional imaging evaluation, BI-RAD 0 RECOMMENDATION: Ultrasound of the right breast. (repeat of prior)
--- NOTE | 2021-01-16 10:21 | USB ---
Reason for exam: additional evaluation requested from abnormal screening. History: Family history of breast cancer in maternal aunt and breast cancer in sister at age 50. Benign right US cyst aspiration of the right breast, June 01, 2010. Benign left mammotome panel of the left breast, September 19, 2006. Took hormonal contraceptives for 12 years beginning at age 18. Took estrogen for 6 years 2 months beginning at age 52. US Breast Limited RT Right limited breast ultrasound including focal area of concern, retroareolar and axilla demonstrates a 0.5 x 0.3 x 0.4cm simple, cystic lesion at 11 o'clock and a 0.5 x 0.4 x 0.4cm cystic lesion at 12 o'clock, cyst with septation minimally complex. Benign appearing. These results were verbally communicated with the patient and result sheet given to the patient on 01/16/21. ASSESSMENT: Benign, BI-RAD 2 RECOMMENDATION: Return to routine screening mammogram schedule for both breasts.
== END | disposition home or self-care (01) ==
LOC: RADMAMWWP 08:51
PROVIDERS: ATTEND Family Medicine
DX: R92.2 Inconclusive mammogram (principal); N60.11 Diffuse cystic mastopathy of right breast; Z80.3 Family history of malignant neoplasm of breast
CPT/HCPCS: 77065

== ENCOUNTER → 2021-09-01 | Outpatient (CLI) | payer MEDICARE ==
--- NOTE | 2021-09-03 09:23 | MM ---
Reason for exam: screening (asymptomatic). Last mammogram was performed 7 months ago. History: Family history of breast cancer in maternal aunt and breast cancer in sister at age 50. Benign right US cyst aspiration of the right breast, June 01, 2010. Benign left mammotome panel of the left breast, September 19, 2006. Took hormonal contraceptives for 12 years beginning at age 18. Took estrogen for 6 years 2 months beginning at age 52. Physical Findings: A clinical breast exam by your physician is recommended on an annual basis and results should be correlated with mammographic findings. MG Screening Mammo w CAD Bilateral CC and MLO view(s) were taken. Prior study comparison: January 16, 2021, right breast MG diagnostic mammo RT w CAD. March 06, 2020, right breast MG work up mamm w CAD RT. There are scattered fibroglandular densities. Previous mammotome biopsy in the left breast. There is chronic nodularity in the right breast Increasing nodular asymmetry lateral left CC view but without correlate on the MLO view. ASSESSMENT: Incomplete: need additional imaging evaluation, BI-RAD 0 RECOMMENDATION: Special view mammogram of the left breast. (3D) If lesion persists on supplemental views, image directed ultrasound is recommended. [facility] will attempt to contact patient to return for supplemental views and ultrasound if indicated.
== END | disposition home or self-care (01) ==
LOC: RADMAMWWP 14:26
PROVIDERS: ATTEND Family Medicine
DX: Z12.31 Encounter for screening mammogram for malignant neoplasm of breast (principal); Z80.3 Family history of malignant neoplasm of breast
CPT/HCPCS: 77067

== ENCOUNTER → 2021-09-04 | Outpatient (CLI) | payer MEDICARE ==
--- NOTE | 2021-09-07 10:08 | MM ---
Reason for exam: additional evaluation requested from abnormal screening. Last mammogram was performed less than 1 month ago. History: Family history of breast cancer in maternal aunt and breast cancer in sister at age 50. Benign right US cyst aspiration of the right breast, June 01, 2010. Benign left mammotome panel of the left breast, September 19, 2006. Took hormonal contraceptives for 12 years beginning at age 18. Took estrogen for 6 years 2 months beginning at age 52. Physical Findings: Nurse did not find any significant physical abnormalities on exam. MG Work Up Mamm w CAD LT Spot compression CC and LM view(s) were taken of the left breast. Prior study comparison: September 01, 2021, bilateral MG screening mammo w CAD. February 20, 2020, bilateral MG screening mammo w CAD. There are scattered fibroglandular densities. There is no discrete abnormality including area of concern left outer quadrant, disperses on compression. These results were verbally communicated with the patient and result sheet given to the patient on 09/04/21. ASSESSMENT: Probably benign, BI-RAD 3 RECOMMENDATION: Follow-up diagnostic mammogram of the left breast in 6 months.
== END | disposition home or self-care (01) ==
LOC: RADMAMWWP 09:26
PROVIDERS: ATTEND Family Medicine
DX: N64.89 Other specified disorders of breast (principal); Z80.3 Family history of malignant neoplasm of breast
CPT/HCPCS: 77065

== ENCOUNTER → 2021-10-16 | Outpatient (CLI) | payer MEDICARE ==
[2021-10-16 17:31] LABS: Anion Gap 13.2 mmol/L (10.00-18.00); Carbon Dioxide 26.1 mmol/L (20.0-27.5); Potassium 3.9 mmol/L (3.5-5.5)
[2021-10-16 17:34] LABS: HCT 40.6 % (37.2-46.3); HGB 12.7 g/dL (12.0-15.0); MCH 26.1 pg (27.0-32.0); MCHC 31.3 g/dL (32.0-37.0); MCV 83.4 fL (80.0-97.0); Mean Platelet Volume 10.7 fL (9.5-12.2); NRBC Per 100 WBC 0 /100 WBCS (0.0-0.0); Platelet Count 399 X 10*3/uL (140-440); RBC 4.87 X 10*6/uL (4.10-5.20); RDW 14.7 % (11.5-14.5); WBC 7.34 X 10*3/uL (4.50-10.00)
== END | disposition home or self-care (01) ==
LOC: LABPAT 11:12
PROVIDERS: ATTEND Surgery
DX: Z01.812 Encounter for preprocedural laboratory examination (principal); K63.5 Polyp of colon; K42.9 Umbilical hernia without obstruction or gangrene
CPT/HCPCS: 36415; 80051; 85027

== ENCOUNTER 2021-10-26 09:05 | Inpatient (IN) | payer MEDICARE ==
[2021-10-22 15:59] VITALS: BMI 37.2
[~2021-10-26 09:05] MED LIST changes: +ACETAMINOPHEN TAB 500 MG TAB PO PRN; +ALVIMOPAN 12 MG CAPSULE PO PRN; +DEXAMETHASONE SOD PHOSPHATE 4 MG/ML 1 ML VIAL IV ONE; +HEPARIN SODIUM,PORCINE/PF 5,000 UNIT/0.5 ML SYRINGE SQ PRN; +HYDROmorphone 0.5 MG/0.5 ML SYRINGE IVP PRN; -LACTATED RINGERS 1,000 ML IV SCH; +LIDOCAINE 1% (10MG/ML) FOR IV START INTRADERMA PRN; -LIDOCAINE 1% 20 ML VIAL (10MG/ML) FOR IV START INTRADERMA PRN; +MIDAZOLAM 2 MG/2 ML VIAL IV PRN; +ONDANSETRON 4 MG/2 ML VIAL IVP ONE; +metroNIDAZOLE-NS PMX 500 MG in SALINE 1 100ML.BAG IVPB PRN
--- NOTE | 2021-10-26 09:42 | P.GSHP ---
History of Present Illness H&P Date: 10/26/21 Chief Complaint: Right-sided colon polyp 65-year-old female known to our service. Patient was last seen in the office in July. She was actually for scheduled in August for right colectomy with repair umbilical hernia however she tested positive for Covid that day and surgery was canceled. Returns today for elective colectomy. Patient was found on prior colonoscopy to have a polyp involving the ileocecal valve. This was removed in a piecemeal fashion. Biopsy results done after recent reattempt at endoscopic removal showed high-grade dysplasia. These recent endoscopies were performed at [facility]. Patient has no symptoms. Patient has been having more pain and swelling at her umbilical hernia site. Thinks it's larger. Past Medical History Past Medical History: Diabetes Mellitus, GERD/Reflux, Hypertension, Pneumonia, Thyroid Disorder Additional Past Medical History / Comment(s): frequent bowel movements, hx migraines, precanerous polyp, "low iron", + COVID 09/07/21. pt currently on antibiotics for UTI History of Any Multi-Drug Resistant Organisms: None Reported Past Surgical History: Bladder Surgery, Hysterectomy Past Anesthesia/Blood Transfusion Reactions: Family History of Problems w/ Anesthesia Additional Past Anesthesia/Blood Transfusion Reaction / Comment(s): daughter and sisters PONV Smoking Status: Former smoker - Past Family History Daughter(s) Family Medical History: Cancer Sister(s) Family Medical History: Cancer Medications and Allergies Home Medications Medication Instructions Recorded Confirmed Type Bisoprolol/Hydrochlorothiazide 1 each PO DAILY 11/15/17 10/22/21 History [Bisoprolol-Hctz 10-6.25 mg Tab] Multivit-Min/Iron/Folic/Lutein 1 each PO DAILY 11/15/17 10/22/21 History [Centrum Silver Women Tablet] Omeprazole 20 mg PO DAILY 11/15/17 10/22/21 History amLODIPine [Norvasc] 10 mg PO DAILY 11/15/17 10/22/21 History Cholecalciferol (Vitamin D3) 4,000 unit PO DAILY 03/29/19 10/22/21 History [Vitamin D3] Cyclobenzaprine [Flexeril] 10 mg PO HS PRN 03/29/19 10/22/21 History Ferrous Sulfate [Iron] 325 mg PO DAILY 03/29/19 10/22/21 History Levothyroxine Sodium [Synthroid] 50 mcg PO DAILY 03/29/19 10/22/21 History metFORMIN HCL [Glucophage Xr] 500 mg PO TID 03/29/19 10/22/21 History traMADol HCL [Ultram] 50 mg PO HS PRN 03/29/19 10/22/21 History ALPRAZolam [Xanax] 0.5 mg PO BID PRN 08/31/21 10/22/21 History Latanoprost/Pf [Latanoprost 0.005% 1 drop BOTH EYES QAM 08/31/21 10/22/21 History Eye Drop] ALPRAZolam [Xanax] 1 mg PO BID PRN 10/22/21 10/22/21 History Metoprolol Tartrate [Lopressor] 100 mg PO HS 10/22/21 10/22/21 History Sulfamethox-Tmp 800-160Mg [Bactrim 1 tab PO Q12HR 10/23/21 10/23/21 History DS 800-160 mg] Allergies Allergy/AdvReac Type Severity Reaction Status Date / Time No Known Allergies Allergy Verified 10/22/21 15:46 Surgical - Exam Physical exam: General: Well-developed, well-nourished HEENT: Normocephalic, sclerae nonicteric Abdomen: Nontender, nondistended, reducible small to moderate sized umbilical hernia Extremities: No edema Neuro: Alert and oriented Assessment and Plan (1) Colon polyp Narrative/Plan: 65-year-old female with ileocecal valve polyp showing high-grade dysplasia and symptomatic umbilical hernia. We'll proceed with open right colectomy with repair umbilical hernia at this time. Patient I discussed that intraoperative findings would dictate whether formal right colectomy or ileocecostomy was chosen as the definitive surgery. Discussed that we would not be using mesh with the hernia repair. Alternative options of laparoscopic colectomy were also offered and the patient and I chose to proceed with open resection at this time. Risks of bleeding, infection, leak, abscess, bladder bowel and ureteral injury, recurrent hernia, diarrhea, possible findings of invasive carcinoma with limited mary dissection reviewed. She understands and wishes to proceed. Current Visit: No Status: Acute Code(s): K63.5 - POLYP OF COLON SNOMED Code(s): 78320563
[2021-10-26 10:08] LABS: Glucose,Whole Blood 104 mg/dL (75-99)
[2021-10-26] MEDS: LACTATED RINGERS 1,000 ML IV SCH (10:08)
[2021-10-26] MEDS ORDERED: ACETAMINOPHEN TAB 500 MG TAB ONE (10:11)
[2021-10-26] MEDS ORDERED: MIDAZOLAM 2 MG/2 ML VIAL IVP ONE (10:31)
[2021-10-26] MEDS ORDERED: fentaNYL (PF) 50 MCG/ML 2 ML AMP IVP ONE (10:31)
[2021-10-26] MEDS ORDERED: NALOXONE 0.4 MG/ML 1 ML VIAL IV PRN (11:05)
[2021-10-26] MEDS ORDERED: PHENYLEPHRINE-0.9% NACL SYG 1,000 MCG/10 ML SYRINGE ONE (11:17)
[2021-10-26] MEDS ORDERED: PROPOFOL 10 MG/ML 20 ML VIAL IV ONE (11:17)
[2021-10-26] MEDS ORDERED: ROCURONIUM 10 MG/ML (5 ML VIAL) IV ONE (11:17)
[2021-10-26] MEDS ORDERED: SUCCINYLCHOLINE CHLORIDE 100 MG/5 ML SYR IV ONE (11:17)
[2021-10-26] MEDS ORDERED: fentaNYL (PF) 50 MCG/ML 2 ML AMP ONE (11:17)
[2021-10-26] MEDS ORDERED: NEOSTIGMINE 1 MG/ML 10 ML VIAL ONE (11:17)
[2021-10-26] MEDS ORDERED: GLYCOPYRROLATE 0.2 MG/ML 2 ML VIAL ONE (11:17)
[2021-10-26] MEDS ORDERED: MIDAZOLAM 2 MG/2 ML VIAL ONE (11:17)
[2021-10-26] MEDS ORDERED: HYDROmorphone (PF) 1 MG/ML ONE (11:17)
[2021-10-26] MEDS ORDERED: LIDOCAINE 1% INJ 10MG/ML (20 ML MDV) ONE (11:17)
--- NOTE | 2021-10-26 11:27 | P.ANPRN ---
Procedure Note - Anesthesia - Epidural/Spinal Epidural Time Out Performed: Yes Date of Procedure: 10/26/21 Procedure Start Time: 10:30 Procedure Stop Time: 10:45 Location of Patient: PreOp Indication: Acute Post-Operative Pain, Requested by Surgeon Sedation Type: Sedate with meaningful contact maintained Preparation: Sterile Dressing Number of Attempts: 1 Position: Sitting Catheter Depth at Skin (cm): 13 Catheter: Indwelling Needle Guage: 18 Injectate: Test Dose Lidocaine1.5% w/1:200,000 epi Blood Aspirated: No Pain Paresthesia on Injection Noted: No Events: Uneventful and Well Tolerated
[2021-10-26] MEDS ORDERED: LACTATED RINGERS 1,000 ML IV ONE (12:12)
[2021-10-26] MEDS ORDERED: ONDANSETRON 4 MG/2 ML VIAL IVP PRN (13:03)
[2021-10-26] MEDS ORDERED: METOCLOPRAMIDE 5 MG/ML 2 ML VIAL IVP PRN (13:03)
[2021-10-26] MEDS ORDERED: HYDROmorphone 1 MG/ML 1 ML SYRINGE IVP PRN (13:03)
--- NOTE | 2021-10-26 13:09 | P.OP ---
Date of Procedure: 10/26/21 Procedure(s) Performed: PREOPERATIVE DIAGNOSIS: Right colon polyp, umbilical hernia POSTOPERATIVE DIAGNOSIS: Same PROCEDURE: Ileocecectomy with repair umbilical hernia SURGEON: Maribel EBL: 25 ML ANESTHESIA: General COMPLICATIONS: None OPERATIVE PROCEDURE: Placement placed in the operating table in the supine position. The patient was placed under general anesthesia. Abdomen was then prepped and draped sterilely. Midline incision made using the scalpel. Dissection through the subcutaneous tissues and fascia took place using electrocautery. Entrance into the peritoneal cavity occurred. The fascial defect at the umbilicus was incorporated into our peritoneal opening. The Bookwalter retractor was utilized. Thankfully the patient's terminal ileum and cecum were fairly mobile. Palpation of the cecum/ileocecal valve did not reveal any palpable masses. The remainder of the visualized small bowel colon and liver appeared normal. Given the fairly normal exam findings I decided to proceed with ileocecectomy. The ileum was divided using a linear 75 stapler. The ascending colon was divided in a similar fashion. The mesentery was divided using both 0 silk ties and the LigaSure device. Specimen was passed off at that point. The specimen was opened on the back table. A small area of induration at the suspected site of the recent polypectomy was visualized. A silk stitch was placed there. I contacted pathology and asked them to do a frozen section to help eliminate the possibility that there was invasive carcinoma here. Frozen section later came back clear. The area was irrigated. No bleeding was seen. The antimesenteric portion of the staple line of both the ileum and ascen ding colon was excised using electrocautery. The linear 75 stapler was fired along the antimesenteric border creating a [id number] anastomosis antiperistaltic. The defect was then closed using a TX 60 device. The TX 60 stapler line was imbricated using interrupted 3-0 GI silk sutures. A 3-0 GI silk crotch stitch was also placed. Again irrigation took place with no evidence of bleeding. The fascia at the site of umbilical hernia was carefully dissected and the hernia sac was excised. The midline fascia was then reapproximated using 2 separate double-stranded looped PDS sutures. The millard bcutaneous tissues were closed using 3-0 Vicryl sutures. The skin was closed using lindsay. Sterile dressings were applied. At the end of this procedure the sponge needle and ensure counts were correct. DISPOSITION: Stable to recovery room
[2021-10-26] MEDS: ROPIVACAINE 250 MG, fentaNYL (PF) 1,250 MCG in SODIUM CHLORIDE 0.9% 175 ML EPIDURAL PRN (13:12)
[2021-10-26] MEDS ORDERED: traMADol 50 MG TAB PO PRN (13:39)
[2021-10-26] MEDS ORDERED: ALPRAZolam 0.5 MG TAB PO PRN (13:39)
--- NOTE | 2021-10-26 14:07 | P.CONS ---
History of Present Illness - Reason for Consult Consult date: 10/26/21 medical management - History of Present Illness 65 years old female with past medical history of diabetes, GERD, hypertension, hypothyroidism, anxiety, history of migraine and recent positive COVID on 09/07/21 with history of tubular adenoma involving cecum with recent biopsies on colonoscopy done at [facility] suggested high-grade dysplasia. Patient underwent ileocolectomy with repair of umbilical hernia on 10/26/21. Patient is seen postoperatively in the ICU doing well. Complains of pain involving the abdomen at the surgical site. Vitals are reviewed afebrile pulse 67 respiratory rate 14 blood pressure 147/6895% on room air. Recent labs from 10/16 suggest hemoglobin 12.7 platelets 399 sodium 139 potassium 3.9 bicarb 26 including an A1c 6.2 from April/2021 TSH normal COVID virus was positive on 09/07/21. Patient denies any chest pain, shortness of breath, dizziness, cough, nausea or vomiting. ROS Constitutional: Denies chills, Denies fever, endorses lethargy, Denies malaise, Denies poor appetite, Denies weakness, Denies weight loss Eyes: denies decreased vision, denies diplopia, denies discharge, denies pain Ears: deny: decreased hearing Ears, nose, mouth and throat: Denies dental pain, Denies headache, Denies nasal discharge, Denies nose pain Cardiovascular: Denies chest pain, Denies decreased exercise tolerance, Denies edema, Denies high blood pressure, Denies irregular heart beat, Denies palpitations, Denies paroxysmal nocturnal dyspnea, Denies rapid heart beat, Denies shortness of breath Respiratory: Denies congestion, Denies cough, Denies cough with sputum, Denies dyspnea, Denies home oxygen, Denies wheezing Gastrointestinal: endorses abdominal pain on mobilization, Denies change in bowel habits, Denies coffee ground emesis, Denies early satiety, Denies excessive gas, Denies heartburn, Denies hematemesis, Denies hematochezia, Denies loss of appetite, Denies nausea, Denies vomiting Genitourinary: Denies dysuria, Denies flank pain, Denies kidney stones, Denies menorrhagia, Denies urgency, Denies urinary frequency Musculoskeletal: Denies gait dysfunction, Denies limitation of motion, Denies morning stiffness, Denies muscle cramps Integumentary: Denies rash, Denies wounds, Denies brittle nails, Denies change in hair/nails, Denies darkening of skin Neurological: Denies balance difficulties, Denies change in speech, Denies double vision, Denies gait dysfunction, Denies loss of vision, Denies motor disturbance, Denies numbness, Denies paralysis, Denies paresthesias, Denies seizures Psychiatric: Denies anxiety, Denies depression Endocrine: Denies excessive sweating, Denies excessive thirst, Denies high blood sugars, Denies palpitations Hematologic/Lymphatic: Denies easy bruising, Denies lymphadenopathy Social history non smoker non drinker Family history no significant family history Physical exam - Constitutional General appearance: drowsy , no acute distress, obese - EENT Eyes: anicteric sclerae, PERRLA, normal appearance ENT: hearing grossly normal - Neck Neck: no lymphadenopathy, normal ROM, no other, no rigidity, no stridor, no thyromegaly - Respiratory Respiratory: bilateral: CTA, negative: diminished, dullness, rales, rhonchi - Cardiovascular Rhythm: regular Heart sounds: normal: S1, S2 Abnormal Heart Sounds: no systolic murmur, no diastolic murmur, no rub, no S3 Gallop, no S4 Gallop, no click, no other - Gastrointestinal General gastrointestinal: sluggish bowel sounds, soft, mild discomfort on exam,abdominal brace in place - Integumentary Integumentary: no rash - Neurologic Neurologic: no gross sensory or motor deficit - Musculoskeletal Musculoskeletal: gait normal, strength equal bilaterally - Psychiatric Psychiatric: A&O x's 3, appropriate affect Assessment and plan 1 postoperative day 0 Ileocecectomy with umblical repair . Continue pain control per primary team. Incentive spirometry for pulmonary prophylaxis. DVT prophylaxis with heparin every 8 hr, watch for hypotension. Vitals every 6 hours. Continue IV fluids at 1 25 mL per hour #2 Anxiety. Xanax 0.5 mg twice a day be continued as when necessary. #3 type 2 diabetes. hold metformin , glucose check ACHS. insulin sliding scale. #4 hypertension continue Norvasc at 10 mg by mouth daily continue metoprolol hold bisoprolol/hydrochlorothiazide can be resumed tomorrow if blood pressure allows. #5 glaucoma, continue latanoprost drops in both eyes every morning #6 hypothyroidism continue Synthyroid 50 g by mouth daily #7 GERD continue omeprazole 20 mg daily #8 DVT prophylaxis heparin every 8 hr Thank you for the consult. I'll be happy to assist in patient's medical the patient's hospital Past Medical History Past Medical History: Diabetes Mellitus, GERD/Reflux, Hypertension, Pneumonia, Thyroid Disorder Additional Past Medical History / Comment(s): frequent bowel movements, hx migraines, precanerous polyp, "low iron", + COVID 09/07/21. pt currently on antibiotics for UTI History of Any Multi-Drug Resistant Organisms: None Reported Past Surgical History: Bladder Surgery, Hysterectomy Past Anesthesia/Blood Transfusion Reactions: Family History of Problems w/ Anesthesia Additional Past Anesthesia/Blood Transfusion Reaction / Comm: daughter and sisters PONV Smoking Status: Former smoker - Past Family History Daughter(s) Family Medical History: Cancer Sister(s) Family Medical History: Cancer Medications and Allergies Home Medications Medication Instructions Recorded Confirmed Type Bisoprolol/Hydrochlorothiazide 1 each PO DAILY 11/15/17 10/26/21 History [Bisoprolol-Hctz 10-6.25 mg Tab] Multivit-Min/Iron/Folic/Lutein 1 each PO DAILY 11/15/17 10/26/21 History [Centrum Silver Women Tablet] Omeprazole 20 mg PO DAILY 11/15/17 10/26/21 History amLODIPine [Norvasc] 10 mg PO DAILY 11/15/17 10/26/21 History Cholecalciferol (Vitamin D3) 4,000 unit PO DAILY 03/29/19 10/26/21 History [Vitamin D3] Cyclobenzaprine [Flexeril] 10 mg PO HS PRN 03/29/19 10/26/21 History Ferrous Sulfate [Iron] 325 mg PO DAILY 03/29/19 10/26/21 History Levothyroxine Sodium [Synthroid] 50 mcg PO DAILY 03/29/19 10/26/21 History metFORMIN HCL [Glucophage Xr] 500 mg PO TID 03/29/19 10/26/21 History traMADol HCL [Ultram] 50 mg PO HS PRN 03/29/19 10/26/21 History ALPRAZolam [Xanax] 0.5 mg PO BID PRN 08/31/21 10/26/21 History Latanoprost/Pf [Latanoprost 0.005% 1 drop BOTH EYES QAM 08/31/21 10/26/21 History Eye Drop] ALPRAZolam [Xanax] 1 mg PO BID PRN 10/22/21 10/26/21 History Metoprolol Tartrate [Lopressor] 100 mg PO HS 10/22/21 10/26/21 History Sulfamethox-Tmp 800-160Mg [Bactrim 1 tab PO Q12HR 10/23/21 10/26/21 History DS 800-160 mg] Allergies Allergy/AdvReac Type Severity Reaction Status Date / Time No Known Allergies Allergy Verified 10/26/21 09:48 Physical Exam Vitals: Vital Signs Temp Pulse Pulse Resp BP Pulse Ox 10/26/21 13:18 63 14 147/64 95 10/26/21 13:02 98 F 67 14 170/89 95 10/26/21 10:49 67 18 105/61 95 10/26/21 09:54 97.1 F L 69 18 147/82 96 Intake and Output 10/25/21 10/26/21 10/26/21 22:59 06:59 14:59 Intake Total 1350 Output Total 425 Balance 925 Intake: IV 1350 Output: Urine 400 Estimated Blood Loss 25 Other: Weight 110.4 kg Results Labs: Abnormal Lab Results - Last 24 Hours (Table) 10/26/21 Range/Units 10:04 POC Glucose (mg/dL) 104 H (75-99) mg/dL
[2021-10-26] MEDS: HEPARIN SODIUM,PORCINE/PF 5,000 UNIT/0.5 ML SYRINGE SQ SCH ×3 (18:26→23:45)
[2021-10-26] MEDS: traMADol 50 MG TAB PO SCH ×2 (18:26→22:09)
[2021-10-26] MEDS: INSULIN ASPART (NovoLOG) 100 UNIT/ML VIAL SQ SCH ×2 (18:26→22:08)
[2021-10-26] MEDS: METOPROLOL TARTRATE 50 MG TAB PO SCH (20:06)
[2021-10-26] MEDS: ALVIMOPAN 12 MG CAPSULE PO SCH (20:07)
[2021-10-26] MEDS: FAMOTIDINE 20 MG/2 ML VIAL IV SCH (20:07)
[2021-10-26] MEDS: LATANOPROST 0.005% OPHTH DROPS 2.5 ML BTL BOTH EYES SCH (20:07)
[2021-10-26] MEDS: diphenhydrAMINE 50 MG/ML 1 ML VIAL IVP PRN (20:07)
[2021-10-26] MEDS: ARTIFICIAL TEARS-HYPROMELLOSE DROPS 15 ML BTL BOTH EYES PRN (20:36)
[2021-10-26 21:24] LABS: Glucose,Whole Blood 140 mg/dL (75-99)
[2021-10-26] MEDS: D5-0.45% NACL WITH KCL 20MEQ/L 1,000 ML IV SCH (22:56)
[2021-10-27] MEDS: HEPARIN SODIUM,PORCINE/PF 5,000 UNIT/0.5 ML SYRINGE SQ SCH ×3 (03:32→17:48)
[2021-10-27] MEDS: LEVOTHYROXINE 50 MCG TAB PO SCH (05:24)
[2021-10-27] MEDS: D5-0.45% NACL WITH KCL 20MEQ/L 1,000 ML IV SCH ×3 (05:28→17:48)
[2021-10-27 07:04] LABS: Glucose,Whole Blood 129 mg/dL (75-99)
[2021-10-27] MEDS: LACTATED RINGERS 1,000 ML IV SCH (07:43)
[2021-10-27] MEDS: INSULIN ASPART (NovoLOG) 100 UNIT/ML VIAL SQ SCH ×4 (07:44→20:40)
[2021-10-27] MEDS: FAMOTIDINE 20 MG/2 ML VIAL IV SCH ×2 (07:52→21:03)
[2021-10-27] MEDS: traMADol 50 MG TAB PO SCH ×4 (07:53→18:45)
[2021-10-27] MEDS: ALVIMOPAN 12 MG CAPSULE PO SCH ×2 (07:58→21:03)
[2021-10-27] MEDS: amLODIPine 10 MG TAB PO SCH (07:58)
[2021-10-27] MEDS: PANTOPRAZOLE 40 MG TABLET PO SCH (07:58)
[2021-10-27] MEDS: FERROUS SULFATE 325 MG TAB PO SCH (08:02)
--- NOTE | 2021-10-27 08:14 | P.PN ---
Progress Note - Text Progress Note Date: 10/27/21 Patient seen and examined POD 1 s/p colectomy with epidural placed for post operative pain management. Patient pain well controlled today with catheter and oral medicine. Continue infusion at current rate. Patient able to void without difficulty. Patient denies WEIR, F/C, N/V. Site is clean and dry. Will continue to follow. All questions answered.
[2021-10-27] MEDS ORDERED: ACETAMINOPHEN TAB 325 MG TAB PO PRN (08:45)
[2021-10-27 09:21] LABS: African American GFR (CKD) 45.6 (60.0-200.0); Anion Gap 12.3 mmol/L (10.00-18.00); BUN/Creat Ratio 14.14 Ratio (12.00-20.00); Basophils # (A) 0.01 X 10*3/uL (0.00-0.10); Basophils % (A) 0.1 %; Blood Urea Nitrogen 19.8 mg/dL (9.0-27.0); Calcium 8.7 mg/dL (8.7-10.3); Carbon Dioxide 21.7 mmol/L (20.0-27.5); Eosinophils # (A) 0 X 10*3/uL (0.04-0.35); Eosinophils % (A) 0 %; HCT 34.7 % (37.2-46.3); HGB 10.9 g/dL (12.0-15.0); Immature Grans, Automated 0.3 %; Lymphocytes # (A) 1.94 X 10*3/uL (0.90-5.00); Lymphocytes % (A) 14.7 %; MCH 26.5 pg (27.0-32.0); MCHC 31.4 g/dL (32.0-37.0); MCV 84.4 fL (80.0-97.0); Monocytes # (A) 0.97 X 10*3/uL (0.20-1.00); Monocytes % (A) 7.3 %; NRBC Per 100 WBC 0 /100 WBCS (0.0-0.0); Neutrophils # (A) 10.25 X 10*3/uL (1.80-7.70); Neutrophils % (A) 77.6 %; Non-African American GFR(CKD) 39.3 (60.0-200.0); Platelet Count 361 X 10*3/uL (140-440); Potassium 4.5 mmol/L (3.5-5.5); RBC 4.11 X 10*6/uL (4.10-5.20); WBC 13.21 X 10*3/uL (4.50-10.00)
[2021-10-27] MEDS: ARTIFICIAL TEARS-HYPROMELLOSE DROPS 15 ML BTL BOTH EYES PRN (11:13)
[2021-10-27] MEDS: BISOPROLOL-HCTZ 10-6.25 MG 1 EACH TAB PO SCH (12:07)
[2021-10-27] MEDS: diphenhydrAMINE 50 MG/ML 1 ML VIAL IVP PRN (12:17)
[2021-10-27] MEDS ORDERED: FUROSEMIDE 10 MG/ML 4 ML VIAL IV STA (13:03)
--- NOTE | 2021-10-27 13:45 | XR ---
EXAMINATION TYPE: XR chest 1V portable DATE OF EXAM: 10/27/2021 COMPARISON: Chest x-ray 12/26/2018 HISTORY: Hypoxia, cough TECHNIQUE: Single frontal view of the chest is obtained. FINDINGS: Subsegmental basilar atelectatic changes are suspected. Right hemidiaphragm is elevated. B iapical pleural thickening is again noted. Cardiac mediastinal silhouette is stable accounting for di fferences in rotation, technique. There are overlying artifacts. No evident pneumothorax or pleural e ffusion. IMPRESSION: Subsegmental basilar atelectatic change. Follow-up as indicated. Expiratory rotated exam .
--- NOTE | 2021-10-27 14:36 | P.PN ---
Subjective Progress Note Date: 10/27/21 Principal diagnosis: Right colon polyp Patient doing well today. Says her pain is well-controlled. Vital signs are stable however patient with mild hypoxia. Was started on oxygen. No chest pain. Labs noted. No bowel function yet. Denies nausea or vomiting. Complaining of some itching thought to be related to the epidural. Objective - Vital Signs Vital signs: Vital Signs Temp 97.6 F 10/27/21 07:51 Pulse 79 10/27/21 07:51 Resp 18 10/27/21 07:51 BP 155/81 10/27/21 07:51 Pulse Ox 93 L 10/27/21 07:51 Intake & Output 10/26/21 10/27/21 10/27/21 18:59 06:59 18:59 Intake Total 1350 Output Total 425 450 Balance 925 -450 Weight 110.4 kg Intake: IV 1350 Output: Urine 400 450 Estimated Blood Loss 25 Other: Voiding Method Indwelling Catheter - Exam Abdomen: Soft, nondistended, nontender, dressing clean and dry - Labs CBC & Chem 7: 10/27/21 03:30 10/27/21 03:30 Labs: Abnormal Lab Results - Last 24 Hours (Table) 10/26/21 10/27/21 10/27/21 Range/Units 21:23 03:30 03:30 WBC 13.21 H (4.50-10.00) X 10*3/uL Hgb 10.9 L (12.0-15.0) g/dL Hct 34.7 L (37.2-46.3) % MCH 26.5 L (27.0-32.0) pg MCHC 31.4 L (32.0-37.0) g/dL RDW 15.0 H (11.5-14.5) % Neutrophils # 10.25 H (1.80-7.70) X 10*3/uL Eosinophils # 0 L (0.04-0.35) X 10*3/uL Sodium 131 L (135-145) mmol/L Est GFR (CKD-EPI)AfAm 45.6 L (60.0-200.0) Est GFR (CKD-EPI)NonAf 39.3 L (60.0-200.0) Glucose 130 H (70-110) mg/dL POC Glucose (mg/dL) 140 H (75-99) mg/dL 10/27/21 Range/Units 07:02 WBC (4.50-10.00) X 10*3/uL Hgb (12.0-15.0) g/dL Hct (37.2-46.3) % MCH (27.0-32.0) pg MCHC (32.0-37.0) g/dL RDW (11.5-14.5) % Neutrophils # (1.80-7.70) X 10*3/uL Eosinophils # (0.04-0.35) X 10*3/uL Sodium (135-145) mmol/L Est GFR (CKD-EPI)AfAm (60.0-200.0) Est GFR (CKD-EPI)NonAf (60.0-200.0) Glucose (70-110) mg/dL POC Glucose (mg/dL) 129 H (75-99) mg/dL Assessment and Plan (1) Colon polyp Narrative/Plan: Patient doing well postoperatively. Agree with supplemental oxygen. Check chest x-ray already ordered. Ambulate. Gradually advance diet as tolerated. Current Visit: Yes Status: Acute Code(s): K63.5 - POLYP OF COLON SNOMED Code(s): 50225264
--- NOTE | 2021-10-27 16:11 | P.PN ---
Subjective Progress Note Date: 10/27/21 65 years old female with past medical history of diabetes, GERD, hypertension, hypothyroidism, anxiety, history of migraine and recent positive COVID on 09/07/21 with history of tubular adenoma involving cecum with recent biopsies on colonoscopy done at [facility] suggested high-grade dysplasia. Patient underwent ileocolectomy with repair of umbilical hernia on 10/26/21. Patient is seen postoperatively in the ICU doing well. Complains of pain involving the abdomen at the surgical site. Vitals are reviewed afebrile pulse 67 respiratory rate 14 blood pressure 147/6895% on room air. Recent labs from 10/16 suggest hemoglobin 12.7 platelets 399 sodium 139 potassium 3.9 bicarb 26 including an A1c 6.2 from April/2021 TSH normal COVID virus was positive on 09/07/21. Patient denies any chest pain, shortness of breath, dizziness, cough, nausea or vomiting. 10/27: She remains afebrile, heart rate in the 70s, blood pressure 155/81, pulse ox 93% on 2 L nasal cannula. Repeat blood work reveals WBC 13.2, hemoglobin 10.9. Sodium 131. Capillary blood glucose running between 104 140. Patient has epidural in place for pain management. She denies having any headache, fever chills, nausea or vomiting. She is currently on a clear liquid diet. Patient is eating 50% of her breakfast this morning and tolerating, no nausea or vomiting. Patient is utilizing incentive spirometry. Patient had a drop in her pulse ox 84% on room air today was placed on 4 L nasal cannula with pulse ox 94%. Chest x-ray was ordered finding subsegmental basilar atelectasis. Patient is utilizing incentive spirometry reaching 1500 ML's. Patient encouraged to increase this. Patient does have flushed face, given Benadryl without much improvement. Dr. López his advance diet. ROS Constitutional: Denies chills, Denies fever, endorses lethargy, Denies malaise, Denies poor appetite, Denies weakness, Denies weight loss Eyes: denies decreased vision, denies diplopia, denies discharge, denies pain Ears: deny: decreased hearing Ears, nose, mouth and throat: Denies dental pain, Denies headache, Denies nasal discharge, Denies nose pain Cardiovascular: Denies chest pain, Denies decreased exercise tolerance, Denies edema, Denies high blood pressure, Denies irregular heart beat, Denies palpitations, Denies paroxysmal nocturnal dyspnea, Denies rapid heart beat, Denies shortness of breath Respiratory: Denies congestion, Denies cough, Denies cough with sputum, Denies dyspnea, Denies home oxygen, Denies wheezing Gastrointestinal: endorses abdominal pain on mobilization, Denies change in bowel habits, Denies coffee ground emesis, Denies early satiety, Denies excessive gas, Denies heartburn, Denies hematemesis, Denies hematochezia, Denies loss of appetite, Denies nausea, Denies vomiting Genitourinary: Denies dysuria, Denies flank pain, Denies kidney stones, Denies menorrhagia, Denies urgency, Denies urinary frequency Musculoskeletal: Denies gait dysfunction, Denies limitation of motion, Denies morning stiffness, Denies muscle cramps Integumentary: Denies rash, Denies wounds, Denies brittle nails, Denies change in hair/nails, Denies darkening of skin Neurological: Denies balance difficulties, Denies change in speech, Denies double vision, Denies gait dysfunction, Denies loss of vision, Denies motor disturbance, Denies numbness, Denies paralysis, Denies paresthesias, Denies seizures Psychiatric: Denies anxiety, Denies depression Endocrine: Denies excessive sweating, Denies excessive thirst, Denies high blood sugars, Denies palpitations Hematologic/Lymphatic: Denies easy bruising, Denies lymphadenopathy - Constitutional General appearance: drowsy , no acute distress, obese - EENT Eyes: anicteric sclerae, PERRLA, normal appearance ENT: hearing grossly normal - Neck Neck: no lymphadenopathy, normal ROM, no other, no rigidity, no stridor, no thyromegaly - Respiratory Respiratory: bilateral: CTA, negative: diminished, dullness, rales, rhonchi - Cardiovascular Rhythm: regular Heart sounds: normal: S1, S2 Abnormal Heart Sounds: no systolic murmur, no diastolic murmur, no rub, no S3 Gallop, no S4 Gallop, no click, no other - Gastrointestinal General gastrointestinal: Normal bowel sounds, soft, mild discomfort on exam,abdominal brace in place, Wolff catheter in place. - Integumentary Integumentary: no rash - Neurologic Neurologic: no gross sensory or motor deficit - Musculoskeletal Musculoskeletal: gait normal, strength equal bilaterally - Psychiatric Psychiatric: A&O x's 3, appropriate affect Assessment and plan 1 postoperative day 1 Ileocecectomy with umblical repair. Epidural in place for pain management. Incentive spirometry for pulmonary prophylaxis. DVT prophylaxis with heparin every 8 hr, watch for hypotension. Vitals every 6 hours. Continue IV fluids at 1 25 mL per hour. #2 Anxiety. Xanax 0.5 mg twice a day be continued as when necessary. #3 type 2 diabetes. hold metformin , glucose check ACHS. insulin sliding scale. #4 hypertension continue Norvasc at 10 mg by mouth daily continue metoprolol hold bisoprolol/hydrochlorothiazide can be resumed tomorrow if blood pressure allows. #5 glaucoma, continue latanoprost drops in both eyes every morning #6 hypothyroidism continue Synthyroid 50 g by mouth daily #7 GERD continue omeprazole 20 mg daily #8 hypoxia with atelectasis on x-ray. Encourage use of incentive spirometry. DVT prophylaxis heparin every 8 hr Impression and plan of care have been directed as dictated by the signing physician. Tara Johnson nurse practitioner acting as scribe for signing physician. Objective - Vital Signs Vital signs: Vital Signs Temp 97.6 F 10/27/21 07:51 Pulse 79 10/27/21 07:51 Resp 18 10/27/21 07:51 BP 155/81 10/27/21 07:51 Pulse Ox 93 L 10/27/21 07:51 Intake & Output 10/26/21 10/27/21 10/27/21 18:59 06:59 18:59 Intake Total 1350 Output Total 425 450 Balance 925 -450 Weight 110.4 kg Intake: IV 1350 Output: Urine 400 450 Estimated Blood Loss 25 Other: Voiding Method Indwelling Catheter - Labs CBC & Chem 7: 10/27/21 03:30 10/27/21 03:30 Labs: Abnormal Lab Results - Last 24 Hours (Table) 10/26/21 10/27/21 10/27/21 Range/Units 21:23 03:30 03:30 WBC 13.21 H (4.50-10.00) X 10*3/uL Hgb 10.9 L (12.0-15.0) g/dL Hct 34.7 L (37.2-46.3) % MCH 26.5 L (27.0-32.0) pg MCHC 31.4 L (32.0-37.0) g/dL RDW 15.0 H (11.5-14.5) % Neutrophils # 10.25 H (1.80-7.70) X 10*3/uL Eosinophils # 0 L (0.04-0.35) X 10*3/uL Sodium 131 L (135-145) mmol/L Est GFR (CKD-EPI)AfAm 45.6 L (60.0-200.0) Est GFR (CKD-EPI)NonAf 39.3 L (60.0-200.0) Glucose 130 H (70-110) mg/dL POC Glucose (mg/dL) 140 H (75-99) mg/dL 10/27/21 Range/Units 07:02 WBC (4.50-10.00) X 10*3/uL Hgb (12.0-15.0) g/dL Hct (37.2-46.3) % MCH (27.0-32.0) pg MCHC (32.0-37.0) g/dL RDW (11.5-14.5) % Neutrophils # (1.80-7.70) X 10*3/uL Eosinophils # (0.04-0.35) X 10*3/uL Sodium (135-145) mmol/L Est GFR (CKD-EPI)AfAm (60.0-200.0) Est GFR (CKD-EPI)NonAf (60.0-200.0) Glucose (70-110) mg/dL POC Glucose (mg/dL) 129 H (75-99) mg/dL
[2021-10-27 16:31] LABS: Glucose,Whole Blood 105 mg/dL (75-99)
[2021-10-27] MEDS: ROPIVACAINE 250 MG, fentaNYL (PF) 1,250 MCG in SODIUM CHLORIDE 0.9% 175 ML EPIDURAL PRN (17:51)
[2021-10-27 20:40] LABS: Glucose,Whole Blood 108 mg/dL (75-99)
[2021-10-27] MEDS: METOPROLOL TARTRATE 50 MG TAB PO SCH (21:01)
[2021-10-28] MEDS: HEPARIN SODIUM,PORCINE/PF 5,000 UNIT/0.5 ML SYRINGE SQ SCH ×4 (00:49→23:13)
[2021-10-28] MEDS: LEVOTHYROXINE 50 MCG TAB PO SCH (04:15)
[2021-10-28] MEDS: D5-0.45% NACL WITH KCL 20MEQ/L 1,000 ML IV SCH ×2 (05:50→17:09)
[2021-10-28 07:02] LABS: Glucose,Whole Blood 121 mg/dL (75-99)
[2021-10-28] MEDS: INSULIN ASPART (NovoLOG) 100 UNIT/ML VIAL SQ SCH ×4 (07:26→21:30)
[2021-10-28] MEDS: PANTOPRAZOLE 40 MG TABLET PO SCH (08:29)
[2021-10-28] MEDS: ALVIMOPAN 12 MG CAPSULE PO SCH ×2 (08:29→21:35)
[2021-10-28] MEDS: LATANOPROST 0.005% OPHTH DROPS 2.5 ML BTL BOTH EYES SCH (08:30)
[2021-10-28] MEDS: FERROUS SULFATE 325 MG TAB PO SCH (08:30)
[2021-10-28] MEDS: amLODIPine 10 MG TAB PO SCH (08:30)
[2021-10-28] MEDS: BISOPROLOL-HCTZ 10-6.25 MG 1 EACH TAB PO SCH (08:30)
--- NOTE | 2021-10-28 09:38 | P.PN ---
Progress Note - Text Progress Note Date: 10/28/21 (975) Anesthesia Postop day #2 Status post exploratory laparotomy, colectomy with epidural day #3 Patient seen and examined. Doing well without complaint. VAS 0 out of 10. No nausea vomiting or pruritus. Ropivacaine 0.1% with fentanyl 5 mcg/mL at 5 mL an hour. Objective: Vital signs reviewed Lungs: Good chest excursion Abdomen: Appears nondistended Other: Epidural Site Intact without induration. Dressing intact Neuro: No apparent motor block. Sensory within normal limits. Assessment: Status post exploratory laparotomy with epidural postop day #2 Plan: Continue current care with your medical management. Anticipate discontinued catheter tomorrow..
[2021-10-28 09:50] LABS: Basophils % (A) 0 %; Eosinophils # (A) 0.2 k/uL (0-0.7); Eosinophils % (A) 2 %; HCT 38.8 % (34.0-46.0); HGB 12.4 gm/dL (11.4-16.0); Lymphocytes # (A) 2.6 k/uL (1.0-4.8); Lymphocytes % (A) 27 %; MCH 27.4 pg (25.0-35.0); MCV 85.5 fL (80.0-100.0); Mean Platelet Volume 7.3; Monocytes # (A) 0.5 k/uL (0-1.0); Monocytes % (A) 5 %; Neutrophils # (A) 6.1 k/uL (1.3-7.7); Neutrophils % (A) 63 %; Platelet Count 356 k/uL (150-450); RBC 4.54 m/uL (3.80-5.40); RDW 13.9 % (11.5-15.5); WBC 9.7 k/uL (3.8-10.6)
[2021-10-28 10:06] LABS: African American GFR (CKD) 81 (>60 ml/min/1.73 sqM); Anion Gap 9 mmol/L; Blood Urea Nitrogen 10 mg/dL (7-17); Carbon Dioxide 27 mmol/L (22-30); Chloride 99 mmol/L (98-107); Glucose 132 mg/dL (74-99); Non-African American GFR(CKD) 70 (>60 ml/min/1.73 sqM); Sodium 135 mmol/L (137-145)
[2021-10-28] MEDS ORDERED: BISOPROLOL-HCTZ 10-6.25 MG 1 EACH TAB PO STA (11:17)
[2021-10-28 11:31] LABS: Glucose,Whole Blood 114 mg/dL (75-99)
--- NOTE | 2021-10-28 12:06 | P.PN ---
<Padmini Franco - Last Filed: 10/28/21 12:00> Subjective Progress Note Date: 10/28/21 CHIEF COMPLAINT: Right colon polyp HISTORY OF PRESENT ILLNESS: Patient is postop day #2 status post ileocecectomy with repair of umbilical hernia. Patient reports her pain is controlled. She does report a little bit of abdominal cramping right lower quadrant. She is having some flatus. Denies any nausea or vomiting. Currently on full liquid diet. His epidural in place for pain. Afebrile. WBC 9.7 hemoglobin 12.4 platelets 356 chest x-ray showing atelectasis PHYSICAL EXAM: VITAL SIGNS: Reviewed. GENERAL: Well-developed in no acute distress. HEENT: No sclera icterus. Extraocular movements grossly intact. Moist buccal mucosa. Head is atraumatic, normocephalic. ABDOMEN: Soft. Nondistended. Nontender. Dressing clean dry and intact. Abdominal binder in place. NEUROLOGIC: Alert and oriented. Cranial nerves II through XII grossly intact. ASSESSMENT: 1. Right colon polyp, umbilical hernia status post ileocecectomy with repair of umbilical hernia 2. Atelectasis PLAN: -Continue epidural for pain -Planning epidural and Wolff catheter to be discontinued tomorrow -Continue full liquid diet -Encourage patient to use incentive spirometer -GI prophylaxis Protonix and DVT prophylaxis subcu heparin Physician Electronic Prepress System Operator note has been reviewed by physician. Signing provider agrees with the documented findings, assessment, and plan of care. Objective - Vital Signs Vital signs: Vital Signs Temp 97.7 F 10/28/21 07:49 Pulse 69 10/28/21 07:49 Resp 16 10/28/21 07:49 BP 169/85 10/28/21 07:49 Pulse Ox 90 L 10/28/21 08:25 Intake & Output 10/27/21 10/28/21 10/28/21 18:59 06:59 18:59 Intake Total 118.1 200 236 Output Total 2400 2300 500 Balance -2281.9 -2100 -264 Intake: Intake, IV Titration 118.1 200 Amount D5-0.45% NaCl with KCl 200 20Meq/l 1,000 ml @ 20 mls /hr IV .Q24H [facility] Rx#: [id number] Ropivacaine 250 mg 118.1 fentaNYL (PF) 1,250 mcg In Sodium Chloride 0.9% 175 ml @ Per Protocol EPIDURAL .Q0M PRN Rx#: [id number] Oral 236 Output: Urine 2400 2300 500 Uretheral (Wolff) 900 Other: Voiding Method Indwelling Catheter Indwelling Catheter Indwelling Catheter - Labs CBC & Chem 7: 10/28/21 09:16 10/28/21 09:16 Labs: Abnormal Lab Results - Last 24 Hours (Table) 10/27/21 10/27/21 10/28/21 Range/Units 16:29 20:39 07:01 Sodium (137-145) mmol/L Glucose (74-99) mg/dL POC Glucose (mg/dL) 105 H 108 H 121 H (75-99) mg/dL 10/28/21 10/28/21 Range/Units 09:16 11:30 Sodium 135 L (137-145) mmol/L Glucose 132 H (74-99) mg/dL POC Glucose (mg/dL) 114 H (75-99) mg/dL <Abdelrahman López - Last Filed: 10/28/21 14:52> Subjective I have personally seen and examined the patient, reviewed the MOTOR MAN /PAs history, exam and MDM and agree with the assessment and plan as written. Based on total visit time, I have performed more than 50% of the visit. As above: Patient doing well. Tolerating full liquids. She is passing flatus. Remove Wolff and epidural tomorrow. Ambulate. Objective - Vital Signs Vital signs: Vital Signs Temp 97.6 F 10/28/21 13:38 Pulse 69 10/28/21 13:38 Resp 16 10/28/21 13:38 BP 150/85 10/28/21 13:38 Pulse Ox 94 L 10/28/21 13:38 Intake & Output 10/27/21 10/28/21 10/28/21 18:59 06:59 18:59 Intake Total 118.1 200 472 Output Total 2400 2300 1200 Balance -2281.9 -2100 -728 Intake: Intake, IV Titration 118.1 200 Amount D5-0.45% NaCl with KCl 200 20Meq/l 1,000 ml @ 20 mls /hr IV .Q24H [facility] Rx#: [id number] Ropivacaine 250 mg 118.1 fentaNYL (PF) 1,250 mcg In Sodium Chloride 0.9% 175 ml @ Per Protocol EPIDURAL .Q0M PRN Rx#: [id number] Oral 472 Output: Urine 2400 2300 1200 Uretheral (Wolff) 900 Other: Voiding Method Indwelling Catheter Indwelling Catheter Indwelling Catheter - Labs CBC & Chem 7: 10/28/21 09:16 10/28/21 09:16 Labs: Abnormal Lab Results - Last 24 Hours (Table) 10/27/21 10/27/21 10/28/21 Range/Units 16:29 20:39 07:01 Sodium (137-145) mmol/L Glucose (74-99) mg/dL POC Glucose (mg/dL) 105 H 108 H 121 H (75-99) mg/dL 10/28/21 10/28/21 Range/Units 09:16 11:30 Sodium 135 L (137-145) mmol/L Glucose 132 H (74-99) mg/dL POC Glucose (mg/dL) 114 H (75-99) mg/dL Assessment and Plan (1) Colon polyp Current Visit: Yes Status: Acute Code(s): K63.5 - POLYP OF COLON SNOMED Code(s): 68673385
--- NOTE | 2021-10-28 15:13 | P.PN ---
Subjective Progress Note Date: 10/28/21 65 years old female with past medical history of diabetes, GERD, hypertension, hypothyroidism, anxiety, history of migraine and recent positive COVID on 09/07/21 with history of tubular adenoma involving cecum with recent biopsies on colonoscopy done at [facility] suggested high-grade dysplasia. Patient underwent ileocolectomy with repair of umbilical hernia on 10/26/21. Patient is seen postoperatively in the ICU doing well. Complains of pain involving the abdomen at the surgical site. Vitals are reviewed afebrile pulse 67 respiratory rate 14 blood pressure 147/6895% on room air. Recent labs from 10/16 suggest hemoglobin 12.7 platelets 399 sodium 139 potassium 3.9 bicarb 26 including an A1c 6.2 from April/2021 TSH normal COVID virus was positive on 09/07/21. Patient denies any chest pain, shortness of breath, dizziness, cough, nausea or vomiting. 10/27: She remains afebrile, heart rate in the 70s, blood pressure 155/81, pulse ox 93% on 2 L nasal cannula. Repeat blood work reveals WBC 13.2, hemoglobin 10.9. Sodium 131. Capillary blood glucose running between 104 140. Patient has epidural in place for pain management. She denies having any headache, fever chills, nausea or vomiting. She is currently on a clear liquid diet. Patient is eating 50% of her breakfast this morning and tolerating, no nausea or vomiting. Patient is utilizing incentive spirometry. Patient had a drop in her pulse ox 84% on room air today was placed on 4 L nasal cannula with pulse ox 94%. Chest x-ray was ordered finding subsegmental basilar atelectasis. Patient is utilizing incentive spirometry reaching 1500 ML's. Patient encouraged to increase this. Patient does have flushed face, given Benadryl without much improvement. Dr. López his advance diet. 10/28: Patient has been continued on epidural for pain control. She is tolerating diet and passing gas. No nausea or vomiting. Patient is currently on a full liquid diet. Wolff catheter also remains in place. Anticipate this will be discontinued by tomorrow. We are increasing her blood pressure medication to 2 tablets starting today. ROS Constitutional: Denies chills, Denies fever, endorses lethargy, Denies malaise, Denies poor appetite, Denies weakness, Denies weight loss Eyes: denies decreased vision, denies diplopia, denies discharge, denies pain Ears: deny: decreased hearing Ears, nose, mouth and throat: Denies dental pain, Denies headache, Denies nasal discharge, Denies nose pain Cardiovascular: Denies chest pain, Denies decreased exercise tolerance, Denies edema, Denies high blood pressure, Denies irregular heart beat, Denies palpitations, Denies paroxysmal nocturnal dyspnea, Denies rapid heart beat, Denies shortness of breath Respiratory: Denies congestion, Denies cough, Denies cough with sputum, Denies dyspnea, Denies home oxygen, Denies wheezing Gastrointestinal: endorses abdominal pain controlled with epidural, Denies change in bowel habits, Denies coffee ground emesis, Denies early satiety, Denies excessive gas, Denies heartburn, Denies hematemesis, Denies hematochezia, Denies loss of appetite, Denies nausea, Denies vomiting Genitourinary: Denies dysuria, Denies flank pain, Denies kidney stones, Denies menorrhagia, Denies urgency, Denies urinary frequency Musculoskeletal: Denies gait dysfunction, Denies limitation of motion, Denies morning stiffness, Denies muscle cramps Integumentary: Denies rash, Denies wounds, Denies brittle nails, Denies change in hair/nails, Denies darkening of skin Neurological: Denies balance difficulties, Denies change in speech, Denies double vision, Denies gait dysfunction, Denies loss of vision, Denies motor disturbance, Denies numbness, Denies paralysis, Denies paresthesias, Denies seizures Psychiatric: Denies anxiety, Denies depression Endocrine: Denies excessive sweating, Denies excessive thirst, Denies high blood sugars, Denies palpitations Hematologic/Lymphatic: Denies easy bruising, Denies lymphadenopathy - Constitutional General appearance: drowsy , no acute distress, obese - EENT Eyes: anicteric sclerae, PERRLA, normal appearance ENT: hearing grossly normal - Neck Neck: no lymphadenopathy, normal ROM, no other, no rigidity, no stridor, no thyromegaly - Respiratory Respiratory: bilateral: CTA, negative: diminished, dullness, rales, rhonchi - Cardiovascular Rhythm: regular Heart sounds: normal: S1, S2 Abnormal Heart Sounds: no systolic murmur, no diastolic murmur, no rub, no S3 Gallop, no S4 Gallop, no click, no other - Gastrointestinal General gastrointestinal: Normal bowel sounds, soft, mild discomfort on exam,abdominal brace in place, Wolff catheter in place. - Integumentary Integumentary: no rash - Neurologic Neurologic: no gross sensory or motor deficit - Musculoskeletal Musculoskeletal: gait normal, strength equal bilaterally - Psychiatric Psychiatric: A&O x's 3, appropriate affect Assessment and plan 1 postoperative day 2 Ileocecectomy with umblical repair. Epidural in place for pain management. Incentive spirometry for pulmonary prophylaxis. DVT prophylaxis with heparin every 8 hr, watch for hypotension. Full liquid diet #2 Anxiety. Xanax 0.5 mg twice a day be continued as when necessary. #3 type 2 diabetes. hold metformin , glucose check ACHS. insulin sliding scale. #4 hypertension continue Norvasc at 10 mg by mouth daily continue metoprolol increase bisoprolol/hydrochlorothiazide to 2 tablets daily. #5 glaucoma, continue latanoprost drops in both eyes every morning #6 hypothyroidism continue Synthyroid 50 g by mouth daily #7 GERD continue omeprazole 20 mg daily #8 hypoxia with atelectasis on x-ray. Encourage use of incentive spirometry. DVT prophylaxis heparin every 8 hr Impression and plan of care have been directed as dictated by the signing physician. Tara Johnson nurse practitioner acting as scribe for signing phys keeley. Objective - Vital Signs Vital signs: Vital Signs Temp 97.7 F 10/28/21 07:49 Pulse 69 10/28/21 07:49 Resp 16 10/28/21 07:49 BP 169/85 10/28/21 07:49 Pulse Ox 90 L 10/28/21 08:25 Intake & Output 10/27/21 10/28/21 10/28/21 18:59 06:59 18:59 Intake Total 118.1 200 236 Output Total 2400 2300 500 Balance -2281.9 -2100 -264 Intake: Intake, IV Titration 118.1 200 Amount D5-0.45% NaCl with KCl 200 20Meq/l 1,000 ml @ 20 mls /hr IV .Q24H [facility] Rx#: [id number] Ropivacaine 250 mg 118.1 fentaNYL (PF) 1,250 mcg In Sodium Chloride 0.9% 175 ml @ Per Protocol EPIDURAL .Q0M PRN Rx#: [id number] Oral 236 Output: Urine 2400 2300 500 Uretheral (Wolff) 900 Other: Voiding Method Indwelling Catheter Indwelling Catheter Indwelling Catheter - Labs CBC & Chem 7: 10/28/21 09:16 10/28/21 09:16 Labs: Abnormal Lab Results - Last 24 Hours (Table) 10/27/21 10/27/21 10/28/21 Range/Units 16:29 20:39 07:01 Sodium (137-145) mmol/L Glucose (74-99) mg/dL POC Glucose (mg/dL) 105 H 108 H 121 H (75-99) mg/dL 10/28/21 Range/Units 09:16 Sodium 135 L (137-145) mmol/L Glucose 132 H (74-99) mg/dL POC Glucose (mg/dL) (75-99) mg/dL
[2021-10-28 16:20] LABS: Glucose,Whole Blood 108 mg/dL (75-99)
--- NOTE | 2021-10-28 17:26 | CDI ---
Documentation Clarification Form Date: 10/28/2021 05:08:49 PM From: Melissa Cummings RN, CCDS Admit Date: 10/26/2021 09:12:00 AM Patient Name: Vera Narayanan Visit Number: [id number] Discharge Date: ATTENTION: The Clinical Documentation Specialists (CDI) and [facility] Coding Staff appreciate your assistance in clarifying documentation. Please respond to the clarification below the line at the bottom and electronically sign. The CDI & [facility] Coding staff will review the response and follow-up if needed. Please note: Queries are made part of the Legal Health Record. If you have any questions, please contact the author of this message via ITS. Dr. Delores Putnam Atelectasis is documented in the progress notes on 10/28/21] and patient had postop day #2 Ileocecectomy with umbilical repair. Additional clarification is requested regarding the relationship, if any, that exists between the diagnosis and the procedure. Patients Admitting Diagnosis: Right colon polyp, umbilical hernia Post-Operative Diagnosis: Same Procedure performed: Ileocecectomy with repair umbilical hernia History/Risk Factors: Diabetes Mellitus, Hypertension, Thyroid disorder, Colon polyp Clinical Indicators: 65-year-old female with ileocecal valve polyp demonstrating high-grade dysplasia and symptomatic umbilical hernia present for elective repair on 10/26/21. 3 vital sign: 155/81 pulse ox 93 % on 2/L nasal cannula. She had a drop in her pulse ox 84 % on room air and was placed on 4/L nasal cannula with pulse ox 94 %, 10/27 Chest x-ray: Subsegmental basilar atelectic change 10/27 WBC 13.2 HGB 10.9, HCT 34.7 Treatment: Monitor O2 Sat's (titrate) Incentive spirometry .9NS @ 125 MLS/HR What relationship, if any, exists between the diagnosis of atelectasis and the procedure? [ ] Atelectasis is a complication of surgical procedure [ x ] Atelectasis is an expected outcome of the surgical procedure [ ] Atelectasis is related to patients co-morbid condition(s) of [insert co- morbid dxs] & not a complication of the procedure [ ] Other please specify ____ [ ] Unable to determine (Template Last Revised: October 2020) MTDD
[2021-10-28 20:33] LABS: Glucose,Whole Blood 135 mg/dL (75-99)
[2021-10-28] MEDS: METOPROLOL TARTRATE 50 MG TAB PO SCH (21:31)
[2021-10-28] MEDS: FAMOTIDINE 20 MG/2 ML VIAL IV SCH (22:07)
[2021-10-29] MEDS: LEVOTHYROXINE 50 MCG TAB PO SCH (05:19)
[2021-10-29 06:56] LABS: Glucose,Whole Blood 123 mg/dL (75-99)
[2021-10-29] MEDS: INSULIN ASPART (NovoLOG) 100 UNIT/ML VIAL SQ SCH ×4 (06:56→20:55)
[2021-10-29] MEDS: HEPARIN SODIUM,PORCINE/PF 5,000 UNIT/0.5 ML SYRINGE SQ SCH ×3 (07:25→23:42)
[2021-10-29] MEDS: PANTOPRAZOLE 40 MG TABLET PO SCH (07:27)
[2021-10-29] MEDS: BISOPROLOL-HCTZ 10-6.25 MG 1 EACH TAB PO SCH (07:27)
[2021-10-29] MEDS: amLODIPine 10 MG TAB PO SCH (07:27)
[2021-10-29] MEDS: FERROUS SULFATE 325 MG TAB PO SCH (07:27)
[2021-10-29] MEDS: ALVIMOPAN 12 MG CAPSULE PO SCH ×2 (07:29→20:54)
[2021-10-29] MEDS: LATANOPROST 0.005% OPHTH DROPS 2.5 ML BTL BOTH EYES SCH (07:30)
--- NOTE | 2021-10-29 10:28 | P.PN ---
Progress Note - Text Progress Note Date: 10/29/21 Anesthesia Postop day #3 Status post exploratory laparotomy with epidural in #4 Patient seen and examined. Doing well without complaint. Patient was repositioning herself in bed this morning and pulled out catheter.. VAS 0 overnight. No nausea vomiting or pruritus. Epidural already discontinued. Objective: Vital signs reviewed Lungs: Good chest excursion Abdomen: Appears nondistended Other: Epidural Site Intact without induration. Dressing intact Neuro: No apparent motor block. Sensory within normal limits. Assessment: Status post exploratory laparotomy postop day #3 Plan: Continue current care with your medical management. Your pain management
[2021-10-29 11:09] LABS: Glucose,Whole Blood 117 mg/dL (75-99)
[2021-10-29] MEDS ORDERED: LOSARTAN 50 MG TAB PO SCH (11:30)
[2021-10-29] MEDS: D5-0.45% NACL WITH KCL 20MEQ/L 1,000 ML IV SCH (11:36)
[2021-10-29] MEDS: HYDROcodone/APAP 5-325MG 1 EACH TAB PO PRN ×2 (11:42→20:55)
--- NOTE | 2021-10-29 13:33 | P.PN ---
Subjective Progress Note Date: 10/29/21 65 years old female with past medical history of diabetes, GERD, hypertension, hypothyroidism, anxiety, history of migraine and recent positive COVID on 09/07/21 with history of tubular adenoma involving cecum with recent biopsies on colonoscopy done at [facility] suggested high-grade dysplasia. Patient underwent ileocolectomy with repair of umbilical hernia on 10/26/21. Patient is seen postoperatively in the ICU doing well. Complains of pain involving the abdomen at the surgical site. Vitals are reviewed afebrile pulse 67 respiratory rate 14 blood pressure 147/6895% on room air. Recent labs from 10/16 suggest hemoglobin 12.7 platelets 399 sodium 139 potassium 3.9 bicarb 26 including an A1c 6.2 from April/2021 TSH normal COVID virus was positive on 09/07/21. Patient denies any chest pain, shortness of breath, dizziness, cough, nausea or vomiting. 10/27: She remains afebrile, heart rate in the 70s, blood pressure 155/81, pulse ox 93% on 2 L nasal cannula. Repeat blood work reveals WBC 13.2, hemoglobin 10.9. Sodium 131. Capillary blood glucose running between 104 140. Patient has epidural in place for pain management. She denies having any headache, fever chills, nausea or vomiting. She is currently on a clear liquid diet. Patient is eating 50% of her breakfast this morning and tolerating, no nausea or vomiting. Patient is utilizing incentive spirometry. Patient had a drop in her pulse ox 84% on room air today was placed on 4 L nasal cannula with pulse ox 94%. Chest x-ray was ordered finding subsegmental basilar atelectasis. Patient is utilizing incentive spirometry reaching 1500 ML's. Patient encouraged to increase this. Patient does have flushed face, given Benadryl without much improvement. Dr. López his advance diet. 10/28: Patient has been continued on epidural for pain control. She is tolerating diet and passing gas. No nausea or vomiting. Patient is currently on a full liquid diet. Wolff catheter also remains in place. Anticipate this will be discontinued by tomorrow. We are increasing her blood pressure medication to 2 tablets starting today. 10/29: Yesterday, Ziac 10/6.25 was increased to 2 tablets daily, blood pressure today 153/83, heart rate in the 60s, afebrile, pulse ox 92% on 3 L nasal cannula. She is reaching 1500 on incentive spirometry. She has not yet had a bowel movement. Capillary blood glucose running between 108 and 135. Epidural has been discontinued. No nausea or vomiting. Wolff catheter was discontinued this morning as well. Patient is noted to be on 2 beta blockers and metoprolol discontinued, losartan started. Anticipate patient will be ready for discharge tomorrow. Medication reconciliation has been done today in anticipation of discharge tomorrow. New prescriptions have been sent to [place] at [facility]. ROS Constitutional: Denies chills, Denies fever, endorses lethargy, Denies malaise, Denies poor appetite, Denies weakness, Denies weight loss Eyes: denies decreased vision, denies diplopia, denies discharge, denies pain Ears: deny: decreased hearing Ears, nose, mouth and throat: Denies dental pain, Denies headache, Denies nasal discharge, Denies nose pain Cardiovascular: Denies chest pain, Denies decreased exercise tolerance, Denies edema, Denies high blood pressure, Denies irregular heart beat, Denies palpitations, Denies paroxysmal nocturnal dyspnea, Denies rapid heart beat, Denies shortness of breath Respiratory: Denies congestion, Denies cough, Denies cough with sputum, Denies dyspnea, Denies home oxygen, Denies wheezing Gastrointestinal: endorses abdominal pain controlled with epidural, reports change in bowel habits, Denies coffee ground emesis, Denies loss of appetite, Denies nausea, Denies vomiting Genitourinary: Denies dysuria, Denies flank pain, Denies kidney stones, Denies menorrhagia, Denies urgency, Denies urinary frequency Musculoskeletal: Denies gait dysfunction, Denies limitation of motion, Denies morning stiffness, Denies muscle cramps Integumentary: Denies rash, Denies wounds, Denies brittle nails, Denies change in hair/nails, Denies darkening of skin Neurological: Denies balance difficulties, Denies change in speech, Denies double vision, Denies gait dysfunction, Denies loss of vision, Denies motor disturbance, Denies numbness, Denies paralysis, Denies paresthesias, Denies seizures Psychiatric: Denies anxiety, Denies depression Endocrine: Denies excessive sweating, Denies excessive thirst, Denies high blood sugars, Denies palpitations Hematologic/Lymphatic: Denies easy bruising, Denies lymphadenopathy - Constitutional General appearance: drowsy , no acute distress, obese - EENT Eyes: anicteric sclerae, PERRLA, normal appearance ENT: hearing grossly normal - Neck Neck: no lymphadenopathy, normal ROM, no other, no rigidity, no stridor, no thyromegaly - Respiratory Respiratory: bilateral: CTA, negative: diminished, dullness, rales, rhonchi - Cardiovascular Rhythm: regular Heart sounds: normal: S1, S2 Abnormal Heart Sounds: no systolic murmur, no diastolic murmur, no rub, no S3 Gallop, no S4 Gallop, no click, no other - Gastrointestinal General gastrointestinal: Normal bowel sounds, soft, mild discomfort on exam - Integumentary Integumentary: no rash - Neurologic Neurologic: no gross sensory or motor deficit - Musculoskeletal Musculoskeletal: gait normal, strength equal bilaterally - Psychiatric Psychiatric: A&O x's 3, appropriate affect Assessment and plan 1 postoperative day 3 Ileocecectomy with umblical repair. Epidural and Wolff catheter discontinued Incentive spirometry for pulmonary prophylaxis. DVT prophylaxis with heparin every 8 hr, watch for hypotension. Full liquid diet #2 generalized anxiety disorder. Xanax 0.5 mg twice a day be continued as when necessary. #3 type 2 diabetes. hold metformin , glucose check ACHS. insulin sliding scale. #4 hypertension continue Norvasc at 10 mg by mouth daily continue metoprolol increase bisoprolol/hydrochlorothiazide to 2 tablets daily. #5 glaucoma, continue latanoprost drops in both eyes every morning #6 hypothyroidism continue Synthyroid 50 g by mouth daily #7 GERD continue omeprazole 20 mg daily #8 hypoxia with atelectasis, expected with surgery. Encourage use of incentive spirometry. DVT prophylaxis heparin every 8 hr Impression and plan of care have been directed as dictated by the signing physician. Tara Johnson nurse practitioner acting as scribe for signing physician. Objective - Vital Signs Vital signs: Vital Signs Temp 97.7 F 10/29/21 07:36 Pulse 68 10/29/21 07:36 Resp 18 10/29/21 07:36 BP 153/83 10/29/21 07:36 Pulse Ox 92 L 10/29/21 07:36 Intake & Output 10/28/21 10/29/21 10/29/21 18:59 06:59 18:59 Intake Total 768 369.25 Output Total 1700 750 625 Balance -932 -750 -255.75 Intake: Intake, IV Titration 189.25 Amount Ropivacaine 250 mg 189.25 fentaNYL (PF) 1,250 mcg In Sodium Chloride 0.9% 175 ml @ Per Protocol EPIDURAL .Q0M PRN Rx#: [id number] Oral 768 180 Output: Urine 1700 750 625 Other: Voiding Method Indwelling Catheter Indwelling Catheter Indwelling Catheter - Labs CBC & Chem 7: 10/28/21 09:16 10/28/21 09:16 Labs: Abnormal Lab Results - Last 24 Hours (Table) 10/28/21 10/28/21 10/28/21 Range/Units 11:30 16:18 20:31 POC Glucose (mg/dL) 114 H 108 H 135 H (75-99) mg/dL 10/29/21 Range/Units 06:54 POC Glucose (mg/dL) 123 H (75-99) mg/dL
--- NOTE | 2021-10-29 15:25 | P.PN ---
Subjective Progress Note Date: 10/29/21 CHIEF COMPLAINT: Right colon polyp HISTORY OF PRESENT ILLNESS: Patient is postop day #3 status post ileocecectomy with repair of umbilical hernia. Patient reports her pain is controlled. Her epidural and Wolff catheter discontinued this morning. Biopsy results came back as tubular adenoma. Patient is reporting some flatus. Denies any bowel movement. Denies any nausea or vomiting. She has only been up to bedside chair. She's on 3 L nasal cannula satting 92% Patient seen and examined with Dr. melgar who is covering for Dr. López PHYSICAL EXAM: VITAL SIGNS: Reviewed. GENERAL: Well-developed in no acute distress. HEENT: No sclera icterus. Extraocular movements grossly intact. Moist buccal mucosa. Head is atraumatic, normocephalic. ABDOMEN: Soft. Nondistended. Nontender. Dressing clean dry and intact. Abdominal binder in place. NEUROLOGIC: Alert and oriented. Cranial nerves II through XII grossly intact. ASSESSMENT: 1. Right colon polyp, umbilical hernia status post ileocecectomy with repair of umbilical hernia 2. Atelectasis PLAN: -[place] added for pain control -Continue full liquid diet -Encourage patient to ambulate -Encourage patient to use incentive spirometer -Try to wean off of O2 -Possible discharge tomorrow -GI prophylaxis Protonix and DVT prophylaxis subcu heparin Physician Wireless Construction Manager note has been reviewed by physician. Signing provider agrees with the documented findings, assessment, and plan of care. Objective - Vital Signs Vital signs: Vital Signs Temp 97.7 F 10/29/21 07:36 Pulse 68 10/29/21 07:36 Resp 18 10/29/21 07:36 BP 153/83 10/29/21 07:36 Pulse Ox 92 L 10/29/21 07:36 Intake & Output 10/28/21 10/29/21 10/29/21 18:59 06:59 18:59 Intake Total 768 369.25 Output Total 1700 750 625 Balance -932 -750 -255.75 Intake: Intake, IV Titration 189.25 Amount Ropivacaine 250 mg 189.25 fentaNYL (PF) 1,250 mcg In Sodium Chloride 0.9% 175 ml @ Per Protocol EPIDURAL .Q0M PRN Rx#: [id number] Oral 768 180 Output: Urine 1700 750 625 Other: Voiding Method Indwelling Catheter Indwelling Catheter Indwelling Catheter - Labs CBC & Chem 7: 10/28/21 09:16 10/28/21 09:16 Labs: Abnormal Lab Results - Last 24 Hours (Table) 10/28/21 10/28/21 10/29/21 Range/Units 16:18 20:31 06:54 POC Glucose (mg/dL) 108 H 135 H 123 H (75-99) mg/dL 10/29/21 Range/Units 11:06 POC Glucose (mg/dL) 117 H (75-99) mg/dL
[2021-10-29] MEDS ORDERED: LOSARTAN 50 MG TAB PO STA (15:50)
[2021-10-29] MEDS ORDERED: hydrALAZINE HCL 20 MG/ML 1 ML VIAL IVP PRN (15:52)
[2021-10-29 16:54] LABS: Glucose,Whole Blood 100 mg/dL (75-99)
[2021-10-29 20:37] LABS: Glucose,Whole Blood 112 mg/dL (75-99)
[2021-10-29] MEDS: FAMOTIDINE 20 MG/2 ML VIAL IV SCH (20:54)
[2021-10-29] MEDS ORDERED: METOPROLOL TARTRATE 50 MG TAB PO SCH (21:00)
[2021-10-30 02:00] VITALS: RESP 16
[2021-10-30] MEDS: LEVOTHYROXINE 50 MCG TAB PO SCH (05:27)
[2021-10-30 06:56] LABS: Glucose,Whole Blood 129 mg/dL (75-99)
[2021-10-30] MEDS: INSULIN ASPART (NovoLOG) 100 UNIT/ML VIAL SQ SCH (07:02)
[2021-10-30] MEDS: HEPARIN SODIUM,PORCINE/PF 5,000 UNIT/0.5 ML SYRINGE SQ SCH (08:04)
[2021-10-30] MEDS: PANTOPRAZOLE 40 MG TABLET PO SCH (08:04)
[2021-10-30] MEDS: ALVIMOPAN 12 MG CAPSULE PO SCH (08:05)
[2021-10-30] MEDS: amLODIPine 10 MG TAB PO SCH (08:05)
[2021-10-30] MEDS: BISOPROLOL-HCTZ 10-6.25 MG 1 EACH TAB PO SCH (08:05)
[2021-10-30] MEDS: FERROUS SULFATE 325 MG TAB PO SCH (08:05)
[2021-10-30] MEDS: LATANOPROST 0.005% OPHTH DROPS 2.5 ML BTL BOTH EYES SCH (08:06)
[2021-10-30 08:18] VITALS: BP 170/93; PULSE 74; TEMP 98.3
[2021-10-30] MEDS ORDERED: hydroCHLOROthiazide 25 MG TAB PO SCH (09:00)
[2021-10-30] MEDS ORDERED: LOSARTAN 50 MG TAB PO SCH (09:00)
[2021-10-30] MEDS ORDERED: BISOPROLOL 5 MG TAB PO SCH (09:15)
[2021-10-30] MEDS: D5-0.45% NACL WITH KCL 20MEQ/L 1,000 ML IV SCH (09:25)
--- NOTE | 2021-10-30 10:31 | P.DS ---
Providers Date of admission: 10/26/21 09:12 Expected date of discharge: 10/30/21 Attending physician: Abdelrahman López Consults: 10/26/21 13:03 Consult Physician Routine Consulting Provider: [place] Consult Reason/Comments: Medical management Do you want consulting provider notified?: Yes Primary care physician: Gm [place] [facility] Course: Discharge diagnosis 1. Right colon polyp, umbilical hernia status post ileocecectomy with repair of umbilical hernia 2. Atelectasis Hospital course This is a 65-year-old female who had a colonoscopy that had a polyp involving the ileocecal valve. Biopsy results done after recent reattempt at endoscopic removal showed high-grade dysplasia. Patient is status post ileocecectomy with repair of umbilical hernia for the right colon polyp and umbilical hernia. She has tolerated surgery well. She is tolerating diet. She is up and ambulating. She is having flatus. She is afebrile. Her pain is controlled. She is stable for discharge. Please refer to chart for any further details. Physician Chute Puller note has been reviewed by physician. Signing provider agrees with the documented findings, assessment, and plan of care. Patient Condition at Discharge: Stable Plan - Discharge Summary Discharge Rx Participant: Yes New Discharge Prescriptions: New Losartan [Cozaar] 50 mg PO DAILY #30 tab Bisoprolol-Hctz 10-6.25 mg [Ziac 10-6.25 MG] 2 each PO DAILY #60 tab Docusate [Colace] 100 mg PO BID #30 capsule HYDROcodone/APAP 5-325MG [Arcade 5-325] 1 tab PO Q6HR PRN 3 Days #12 tab PRN Reason: Pain Continue amLODIPine [Norvasc] 10 mg PO DAILY Omeprazole 20 mg PO DAILY Multivit-Min/Iron/Folic/Lutein [Centrum Silver Women Tablet] 1 each PO DAILY Levothyroxine Sodium [Synthroid] 50 mcg PO DAILY Ferrous Sulfate [Iron] 325 mg PO DAILY Cholecalciferol (Vitamin D3) [Vitamin D3] 4,000 unit PO DAILY traMADol HCL [Ultram] 50 mg PO HS PRN PRN Reason: Pain metFORMIN HCL [Glucophage Xr] 500 mg PO TID Cyclobenzaprine [Flexeril] 10 mg PO HS PRN PRN Reason: back spasm ALPRAZolam [Xanax] 0.5 mg PO BID PRN PRN Reason: Anxiety Latanoprost/Pf [Latanoprost 0.005% Eye Drop] 1 drop BOTH EYES QAM ALPRAZolam [Xanax] 1 mg PO BID PRN PRN Reason: Anxiety Metoprolol Tartrate [Lopressor] 100 mg PO HS Discontinued Bisoprolol/Hydrochlorothiazide [Bisoprolol-Hctz 10-6.25 mg Tab] 1 each PO DAILY Sulfamethox-Tmp 800-160Mg [Bactrim DS 800-160 mg] 1 tab PO Q12HR Discharge Medication List Multivit-Min/Iron/Folic/Lutein [Centrum Silver Women Tablet] 1 each PO DAILY 11/15/17 [History] Omeprazole 20 mg PO DAILY 11/15/17 [History] amLODIPine [Norvasc] 10 mg PO DAILY 11/15/17 [History] Cholecalciferol (Vitamin D3) [Vitamin D3] 4,000 unit PO DAILY 03/29/19 [History] Cyclobenzaprine [Flexeril] 10 mg PO HS PRN 03/29/19 [History] Ferrous Sulfate [Iron] 325 mg PO DAILY 03/29/19 [History] Levothyroxine Sodium [Synthroid] 50 mcg PO DAILY 03/29/19 [History] metFORMIN HCL [Glucophage Xr] 500 mg PO TID 03/29/19 [History] traMADol HCL [Ultram] 50 mg PO HS PRN 03/29/19 [History] ALPRAZolam [Xanax] 0.5 mg PO BID PRN 08/31/21 [History] Latanoprost/Pf [Latanoprost 0.005% Eye Drop] 1 drop BOTH EYES QAM 08/31/21 [History] ALPRAZolam [Xanax] 1 mg PO BID PRN 10/22/21 [History] Metoprolol Tartrate [Lopressor] 100 mg PO HS 10/22/21 [History] Bisoprolol-Hctz 10-6.25 mg [Ziac 10-6.25 MG] 2 each PO DAILY #60 tab 10/29/21 [Rx] Losartan [Cozaar] 50 mg PO DAILY #30 tab 10/29/21 [Rx] Docusate [Colace] 100 mg PO BID #30 capsule 10/30/21 [Rx] HYDROcodone/APAP 5-325MG [Arcade 5-325] 1 tab PO Q6HR PRN 3 Days #12 tab 10/30/21 [Rx] Follow up Appointment(s)/Referral(s): Abdelrahman López MD [Medical Doctor] - 1 Week Gm Rock DO [Primary Care Provider] - 11/09/21 11:00 am ( ) Activity/Diet/Wound Care/Special Instructions: No driving while taking Arcade No lifting over 10 pounds You may shower. No soaking or tub baths for 2 weeks Very light activity until you are reevaluated at your follow up appointment with your surgeon Continue full liquids and then advance diet as tolerated his bowel activity increases Discharge Disposition: HOME SELF-CARE
--- NOTE | 2021-10-30 11:02 | P.PN ---
Subjective Progress Note Date: 10/30/21 65 years old female with past medical history of diabetes, GERD, hypertension, hypothyroidism, anxiety, history of migraine and recent positive COVID on 09/07/21 with history of tubular adenoma involving cecum with recent biopsies on colonoscopy done at [facility] suggested high-grade dysplasia. Patient underwent ileocolectomy with repair of umbilical hernia on 10/26/21. Patient is seen postoperatively in the ICU doing well. Complains of pain involving the abdomen at the surgical site. Vitals are reviewed afebrile pulse 67 respiratory rate 14 blood pressure 147/6895% on room air. Recent labs from 10/16 suggest hemoglobin 12.7 platelets 399 sodium 139 potassium 3.9 bicarb 26 including an A1c 6.2 from April/2021 TSH normal COVID virus was positive on 09/07/21. Patient denies any chest pain, shortness of breath, dizziness, cough, nausea or vomiting. 10/27: She remains afebrile, heart rate in the 70s, blood pressure 155/81, pulse ox 93% on 2 L nasal cannula. Repeat blood work reveals WBC 13.2, hemoglobin 10.9. Sodium 131. Capillary blood glucose running between 104 140. Patient has epidural in place for pain management. She denies having any headache, fever chills, nausea or vomiting. She is currently on a clear liquid diet. Patient is eating 50% of her breakfast this morning and tolerating, no nausea or vomiting. Patient is utilizing incentive spirometry. Patient had a drop in her pulse ox 84% on room air today was placed on 4 L nasal cannula with pulse ox 94%. Chest x-ray was ordered finding subsegmental basilar atelectasis. Patient is utilizing incentive spirometry reaching 1500 ML's. Patient encouraged to increase this. Patient does have flushed face, given Benadryl without much improvement. Dr. López his advance diet. 10/28: Patient has been continued on epidural for pain control. She is tolerating diet and passing gas. No nausea or vomiting. Patient is currently on a full liquid diet. Wolff catheter also remains in place. Anticipate this will be discontinued by tomorrow. We are increasing her blood pressure medication to 2 tablets starting today. 10/29: Yesterday, Ziac 10/6.25 was increased to 2 tablets daily, blood pressure today 153/83, heart rate in the 60s, afebrile, pulse ox 92% on 3 L nasal cannula. She is reaching 1500 on incentive spirometry. She has not yet had a bowel movement. Capillary blood glucose running between 108 and 135. Epidural has been discontinued. No nausea or vomiting. Wolff catheter was discontinued this morning as well. Patient is noted to be on 2 beta blockers and metoprolol discontinued, losartan started. Anticipate patient will be ready for discharge tomorrow. Medication reconciliation has been done today in anticipation of discharge tomorrow. New prescriptions have been sent to [facility] at [facility]. 3/4 H and examined bedside. Vital signs reveal blood pressure continues to be elevated. We will discontinue celiac losartan increased to 100 once daily. Patient initiated on bisoprolol and hydrochlorothiazide. Description has been sent to the pharmacy. Patient advised on hypertension and dizziness side effects and to check her blood pressure at home. If the blood pressure continues to stay elevated she needs to check with her primary care physician to have a blood pressure medication adjusted again. Creatinine stable at 0.8. Surgical site appears without any oozing or drainage. Patient has had no bowel movement But bowel sounds are intact. ROS Constitutional: Denies chills, Denies fever, endorses lethargy, Denies malaise, Denies poor appetite, Denies weakness, Denies weight loss Eyes: denies decreased vision, denies diplopia, denies discharge, denies pain Ears: deny: decreased hearing Ears, nose, mouth and throat: Denies dental pain, Denies headache, Denies nasal discharge, Denies nose pain Cardiovascular: Denies chest pain, Denies decreased exercise tolerance, Denies edema, Denies high blood pressure, Denies irregular heart beat, Denies palpitations, Denies paroxysmal nocturnal dyspnea, Denies rapid heart beat, Denies shortness of breath Respiratory: Denies congestion, Denies cough, Denies cough with sputum, Denies dyspnea, Denies home oxygen, Denies wheezing Gastrointestinal: Abdominal pain improved reports change in bowel habits, Denies coffee ground emesis, Denies loss of appetite, Denies nausea, Denies vomiting Genitourinary: Denies dysuria, Denies flank pain, Denies kidney stones, Denies menorrhagia, Denies urgency, Denies urinary frequency Musculoskeletal: Denies gait dysfunction, Denies limitation of motion, Denies morning stiffness, Denies muscle cramps Integumentary: Denies rash, Denies wounds, Denies brittle nails, Denies change in hair/nails, Denies darkening of skin Neurological: Denies balance difficulties, Denies change in speech, Denies double vision, Denies gait dysfunction, Denies loss of vision, Denies motor dis turbance, Denies numbness, Denies paralysis, Denies paresthesias, Denies seizures Psychiatric: Denies anxiety, Denies depression Endocrine: Denies excessive sweating, Denies excessive thirst, Denies high blood sugars, Denies palpitations Hematologic/Lymphatic: Denies easy bruising, Denies lymphadenopathy - Constitutional General appearance: drowsy , no acute distress, obese - EENT Eyes: anicteric sclerae, PERRLA, normal appearance ENT: hearing grossly normal - Neck Neck: no lymphadenopathy, normal ROM, no other, no rigidity, no stridor, no thyromegaly - Respiratory Respiratory: bilateral: CTA, negative: diminished, dullness, rales, rhonchi - Cardiovascular Rhythm: regular Heart sounds: normal: S1, S2 Abnormal Heart Sounds: no systolic murmur, no diastolic murmur, no rub, no S3 Gallop, no S4 Gallop, no click, no other - Gastrointestinal General gastrointestinal: Normal bowel sounds, soft, no abdominal tenderness bowel sounds are intact - Integumentary Integumentary: no rash - Neurologic Neurologic: no gross sensory or motor deficit - Musculoskeletal Musculoskeletal: gait normal, strength equal bilaterally - Psychiatric Psychiatric: A&O x's 3, appropriate affect Assessment and plan 1 postoperative day 4 Ileocecectomy with umblical repair. Incentive spirometry for pulmonary prophylaxis. DVT prophylaxis with heparin every 8 hr, watch for hypotension. Full liquid diet #2 generalized anxiety disorder. Xanax 0.5 mg twice a day be continued as when necessary. #3 type 2 diabetes. hold metformin , glucose check ACHS. insulin sliding scale. #4 hypertension continue Norvasc at 10 mg by mouth daily continue discontinue bisoprolol/hydrochlorothiazide. bisoprolol and hctz increased seperately had inadequate 100 mg by mouth daily. #5 glaucoma, continue latanoprost drops in both eyes every morning #6 hypothyroidism continue Synthyroid 50 g by mouth daily #7 GERD continue omeprazole 20 mg daily #8 hypoxia with atelectasis, expected with surgery. Encourage use of incentive spirometry. DVT prophylaxis heparin every 8 hr Objective - Vital Signs Vital signs: Vital Signs Temp 98.3 F 10/30/21 07:18 Pulse 74 10/30/21 07:18 Resp 16 10/30/21 01:49 BP 170/93 10/30/21 07:18 Pulse Ox 94 L 10/30/21 07:18 Intake & Output 10/29/21 10/30/21 10/30/21 18:59 06:59 18:59 Intake Total 729.25 Output Total 625 Balance 104.25 Intake: Intake, IV Titration 189.25 Amount Ropivacaine 250 mg 189.25 fentaNYL (PF) 1,250 mcg In Sodium Chloride 0.9% 175 ml @ Per Protocol EPIDURAL .Q0M PRN Rx#: [id number] Oral 540 Output: Urine 625 Other: Voiding Method Indwelling Catheter Bedside Commode Toilet # Voids 3 # Bowel Movements 0 - Labs CBC & Chem 7: 10/28/21 09:16 10/28/21 09:16 Labs: Abnormal Lab Results - Last 24 Hours (Table) 10/29/21 10/29/21 10/29/21 Range/Units 11:06 16:53 20:34 POC Glucose (mg/dL) 117 H 100 H 112 H (75-99) mg/dL 10/30/21 Range/Units 06:55 POC Glucose (mg/dL) 129 H (75-99) mg/dL
[2021-10-30] MEDS: HYDROcodone/APAP 5-325MG 1 EACH TAB PO PRN (13:15)
[2021-10-31] MEDS ORDERED: BISOPROLOL 5 MG TAB PO SCH (09:00)
== END 2021-10-30 13:16 | disposition home or self-care (01) | DRG 330 ==
LOC: 2ORMAIN 09:12 → 4SSUR 17:45
PROVIDERS: ADMIT Surgery; ATTEND Surgery
PROC: 0DTH0ZZ Resection of Cecum, Open Approach (ICD-10-PCS; principal; 2021-10-26 10:55)
PROC: 0WQF0ZZ Repair Abdominal Wall, Open Approach (ICD-10-PCS; 2021-10-26 10:55)
DX: K63.5 Polyp of colon (principal); J98.11 Atelectasis; K42.9 Umbilical hernia without obstruction or gangrene; E03.9 Hypothyroidism, unspecified; Z79.890 Hormone replacement therapy; E11.9 Type 2 diabetes mellitus without complications; F41.1 Generalized anxiety disorder; H40.9 Unspecified glaucoma; I10 Essential (primary) hypertension; K21.9 Gastro-esophageal reflux disease without esophagitis; R09.02 Hypoxemia; Z79.84 Long term (current) use of oral hypoglycemic drugs; Z79.899 Other long term (current) drug therapy; Z86.16 Personal history of COVID-19; Z87.19 Personal history of other diseases of the digestive system; Z87.891 Personal history of nicotine dependence; Z90.710 Acquired absence of both cervix and uterus
CPT/HCPCS: 71045; 80048; 85025; 86850; 86900; 86901; 88309; 88331

== ENCOUNTER 2022-02-20 12:37 | Emergency (ER) | payer MEDICARE ==
[2022-02-20] MEDS ORDERED: SODIUM CHLORIDE 0.9% 1,000 ML IV STA (13:11)
--- NOTE | 2022-02-20 13:36 | ED ---
General Adult HPI - General Chief complaint: ENT Stated complaint: lumb on neck/pain Time Seen by Provider: 02/20/22 12:58 Source: patient, RN notes reviewed Mode of arrival: ambulatory Limitations: no limitations - History of Present Illness Initial comments: 66-year-old female with a past medical history of NIDDM, GERD, hypertension presents to the emergency room for a chief complaint of facial swelling. Patient states that 5 days ago she started to get a sore throat. The next day she developed swelling under her chin, worse on the right side. Patient states over the past few days it started to get indurated. Patient denies any dental pain. recent exam with dentist was unremarkable. Patient does have a filling on the right lower molar from years ago. Denies any trismus. Denies difficulty breathing. Does admit to pain with swallowing, but able to swallow solids and liquids. She has not had any fevers. pain is currently a 2 out of 10. Patient has no other complaints at this time including shortness of breath, chest pain, abdominal pain, nausea or vomiting, headache, or visual changes. - Related Data Home Medications Medication Instructions Recorded Confirmed Multivit-Min/Iron/Folic/Lutein 1 each PO DAILY 11/15/17 10/26/21 [Centrum Silver Women Tablet] Omeprazole 20 mg PO DAILY 11/15/17 10/26/21 amLODIPine [Norvasc] 10 mg PO DAILY 11/15/17 10/26/21 Cholecalciferol (Vitamin D3) 4,000 unit PO DAILY 03/29/19 10/26/21 [Vitamin D3] Cyclobenzaprine [Flexeril] 10 mg PO HS PRN 03/29/19 10/26/21 Ferrous Sulfate [Iron] 325 mg PO DAILY 03/29/19 10/26/21 Levothyroxine Sodium [Synthroid] 50 mcg PO DAILY 03/29/19 10/26/21 metFORMIN HCL [Glucophage Xr] 500 mg PO TID 03/29/19 10/26/21 traMADol HCL [Ultram] 50 mg PO HS PRN 03/29/19 10/26/21 ALPRAZolam [Xanax] 0.5 mg PO BID PRN 08/31/21 10/26/21 Latanoprost/Pf [Latanoprost 0.005% 1 drop BOTH EYES QAM 08/31/21 10/26/21 Eye Drop] ALPRAZolam [Xanax] 1 mg PO BID PRN 10/22/21 10/26/21 Previous Rx's Medication Instructions Recorded Bisoprolol [Zebeta] 10 mg PO DAILY #30 tab 10/30/21 Docusate [Colace] 100 mg PO BID #30 capsule 10/30/21 HYDROcodone/APAP 5-325MG [[place] 1 tab PO Q6HR PRN 3 Days #12 tab 10/30/21 5-325] Losartan [Cozaar] 100 mg PO DAILY #30 tab 10/30/21 hydroCHLOROthiazide [Hydrodiuril] 25 mg PO DAILY #30 tab 10/30/21 Amoxic-Pot Clav 875-125Mg 1 tab PO Q12HR 10 Days #20 tab 02/20/22 [Augmentin 875-125] Allergies Allergy/AdvReac Type Severity Reaction Status Date / Time No Known Allergies Allergy Verified 02/20/22 12:48 Review of Systems ROS Statement: Those systems with pertinent positive or pertinent negative responses have been documented in the HPI. ROS Other: All systems not noted in ROS Statement are negative. Past Medical History Past Medical History: Diabetes Mellitus, GERD/Reflux, Hypertension, Pneumonia, Thyroid Disorder Additional Past Medical History / Comment(s): frequent bowel movements, hx migraines, precanerous polyp, "low iron", + COVID 09/07/21. pt currently on antibiotics for UTI History of Any Multi-Drug Resistant Organisms: None Reported Past Surgical History: Bladder Surgery, Hysterectomy Past Anesthesia/Blood Transfusion Reactions: Family History of Problems w/ An esthesia Additional Past Anesthesia/Blood Transfusion Reaction / Comment(s): daughter and sisters PONV Past Psychological History: Anxiety Smoking Status: Former smoker - Past Family History Daughter(s) Family Medical History: Cancer Sister(s) Family Medical History: Cancer General Exam Limitations: no limitations General appearance: alert, in no apparent distress Head exam: Present: atraumatic Eye exam: Present: normal appearance, PERRL, EOMI. Absent: scleral icterus, conjunctival injection ENT exam: Present: normal oropharynx (Patient has a filling in the right upper and lower molars however dentition is intact.), TM's normal bilaterally, other (edema and induration noted in the right submandibular and submental triangles. No erythema. Minimal tenderness to these areas.) Neck exam: Present: full ROM Respiratory exam: Present: normal lung sounds bilaterally. Absent: respiratory distress, wheezes Cardiovascular Exam: Present: regular rate, normal rhythm, normal heart sounds Course Vital Signs 02/20/22 12:44 Temperature 98.6 F Pulse Rate 80 Respiratory 16 Rate Blood Pressure 162/89 O2 Sat by Pulse 96 Oximetry Medical Decision Making - Medical Decision Making Vitals are stable. CBC and CMP are unremarkable. Mild hyperglycemia, patient has a history of diabetes. CT soft tissue neck shows dense calcification in the right submandibular salivary gland that could relate to old inflammatory disease. Stone is 13 mm. There is mild anterior triangle right side cervical lymphadenopathy without abscess. Dr Shaw also evaluated. Patient has been taking left over Azithromycin. We will discontinue this as it is not the appropriate antibiotic and start patient on Augmentin. Patient will also do lemon drops and follow-up with ENT. No resp distress or stridor. No voice changes. I did recommend a dose of IV abx in the ED but patient prefers prompt dc and oral meds. Patient will return here if any of these occur or if she has any other issues. - Lab Data Result diagrams: 02/20/22 13:42 02/20/22 13:42 Lab Results 02/20/22 02/20/22 02/20/22 Range/Units 13:42 13:42 13:42 WBC 9.1 (3.8-10.6) k/uL RBC 4.71 (3.80-5.40) m/uL Hgb 13.8 (11.4-16.0) gm/dL Hct 40.9 (34.0-46.0) % MCV 86.7 (80.0-100.0) fL MCH 29.2 (25.0-35.0) pg MCHC 33.7 (31.0-37.0) g/dL RDW 13.5 (11.5-15.5) % Plt Count 341 (150-450) k/uL MPV 7.8 Neutrophils % 66 % Lymphocytes % 24 % Monocytes % 5 % Eosinophils % 1 % Basophils % 1 % Neutrophils # 6.0 (1.3-7.7) k/uL Lymphocytes # 2.2 (1.0-4.8) k/uL Monocytes # 0.5 (0-1.0) k/uL Eosinophils # 0.1 (0-0.7) k/uL Basophils # 0.0 (0-0.2) k/uL Sodium 135 L (137-145) mmol/L Potassium 4.0 (3.5-5.1) mmol/L Chloride 100 (98-107) mmol/L Carbon Dioxide 25 (22-30) mmol/L Anion Gap 10 mmol/L BUN 16 (7-17) mg/dL Creatinine 0.84 (0.52-1.04) mg/dL Est GFR (CKD-EPI)AfAm 84 (>60 ml/min/1.73 sqM) Est GFR (CKD-EPI)NonAf 73 (>60 ml/min/1.73 sqM) Glucose 202 H (74-99) mg/dL Plasma Lactic Acid [place] 1.7 (0.7-2.0) mmol/L Calcium 9.1 (8.4-10.2) mg/dL Total Bilirubin 0.5 (0.2-1.3) mg/dL AST 40 H (14-36) U/L ALT 43 H (4-34) U/L Alkaline Phosphatase 123 (38-126) U/L Total Protein 7.6 (6.3-8.2) g/dL Albumin 4.4 (3.5-5.0) g/dL Disposition Clinical Impression: Salivary gland stone Disposition: HOME SELF-CARE Condition: Good Additional Instructions: Take antibiotic as directed. Due lemon drops frequently. Follow-up with ENT by calling first thing Tuesday morning for the earliest appointment. Return to the emergency room for any worsening symptoms. Prescriptions: Amoxic-Pot Clav 875-125Mg [Augmentin 875-125] 1 tab PO Q12HR 10 Days #20 tab Is patient prescribed a controlled substance at d/c from ED?: No Referrals: Gm Rock DO [Primary Care Provider] - 1-2 days Marcus Gonzalez DO [Doctor of Osteopathic Medicine] - 1-2 days Time of Disposition: 15:20
[2022-02-20 13:56] LABS: Basophils % (A) 1 %; Eosinophils # (A) 0.1 k/uL (0-0.7); Eosinophils % (A) 1 %; HCT 40.9 % (34.0-46.0); HGB 13.8 gm/dL (11.4-16.0); Lymphocytes # (A) 2.2 k/uL (1.0-4.8); Lymphocytes % (A) 24 %; MCH 29.2 pg (25.0-35.0); MCHC 33.7 g/dL (31.0-37.0); MCV 86.7 fL (80.0-100.0); Mean Platelet Volume 7.8; Monocytes # (A) 0.5 k/uL (0-1.0); Monocytes % (A) 5 %; Neutrophils % (A) 66 %; Platelet Count 341 k/uL (150-450); RBC 4.71 m/uL (3.80-5.40); RDW 13.5 % (11.5-15.5); WBC 9.1 k/uL (3.8-10.6)
[2022-02-20 14:05] LABS: Albumin 4.4 g/dL (3.5-5.0); Calcium 9.1 mg/dL (8.4-10.2); Total Bilirubin 0.5 mg/dL (0.2-1.3); Total Protein 7.6 g/dL (6.3-8.2)
--- NOTE | 2022-02-20 14:47 | CT ---
EXAMINATION TYPE: CT soft tissue neck w con DATE OF EXAM: 02/20/2022 COMPARISON: None HISTORY: right side lympnode swelling and under chin CT DLP: 363.7 mGycm Automated exposure control for dose reduction was used. CONTRAST: Performed with IV Contrast, patient injected with 100 mL of Isovue 300. Images obtained from the aortic arch to the top of the orbits with IV contrast. There is normal branching pattern of the great vessels on the aortic arch. There is arterial flow in the carotid arteries and jugular veins is arterial flow in the vertebral arteries. There is a 13 mm dense calcification in the right submandibular salivary gland. The parotid glands ar e symmetric. Left submandibular salivary gland appears intact. Trachea appears normal. Epiglottis is normal. Tongue appears normal. Prevertebral soft tissues are in tact. The tonsils and adenoids are within normal limits. There is fairly normal aeration of the paranasal sinuses. No evidence of focal bone destruction. No r etro-orbital mass. The maxilla is intact. Cervical spine is intact. There is degenerative disc hypertrophic mild changes at C5-6 and C6-7. There are multiple enlarged anterior triangle cervical lymph nodes in the right submandibular region. The largest measures 15 mm in length. The thyroid gland is symmetric. No sign of mediastinal adenopa thy. IMPRESSION: Dense calcification in the right submandibular salivary gland that could relate to old inflammatory d isease. Mild anterior triangle right side cervical lymphadenopathy. No abscess.
[2022-02-20] MEDS ORDERED: AMOXIC-POT CLAV 875MG STARTER PACK 2 TAB BTL PO STA (15:11)
[2022-02-20 15:40] VITALS: BP 167/78; PULSE 82; RESP 20; TEMP 98.2
== END 2022-02-20 15:39 | disposition home or self-care (01) ==
LOC: EC 12:37
DX: K11.5 Sialolithiasis (principal); E11.65 Type 2 diabetes mellitus with hyperglycemia; I10 Essential (primary) hypertension; K21.9 Gastro-esophageal reflux disease without esophagitis; E07.9 Disorder of thyroid, unspecified; Z79.899 Other long term (current) drug therapy; Z79.84 Long term (current) use of oral hypoglycemic drugs; Z79.890 Hormone replacement therapy
CPT/HCPCS: 36415; 80053; 83605; 85025; 87040; 70491; 99284; 96360; Q9967

== ENCOUNTER 2022-07-18 10:59 | Emergency (ER) | payer MEDICARE ==
[2022-07-18 11:04] VITALS: TEMP 97.1
[2022-07-18] MEDS ORDERED: ORPHENADRINE 30 MG/ML 2 ML VIAL IVP STA (11:35)
[2022-07-18] MEDS ORDERED: KETOROLAC 15 MG/ML 1 ML VIAL IVP STA (11:35)
[2022-07-18] MEDS ORDERED: LIDOCAINE 5% PATCH TOPICAL SCH (11:45)
--- NOTE | 2022-07-18 12:02 | ED ---
Back Pain [facility] - General Chief Complaint: Back Pain/Injury Stated Complaint: back pain Time Seen by Provider: 07/18/22 11:05 Source: patient Limitations: no limitations - History of Present Illness Initial Comments: Patient is a 66-year-old female who presents to the emergency department with a chief complaint of lower back pain. Patient states the pain started 4 days ago and is getting worse. She denies injury, trauma, fall. Pain is worse with movement. Patient having trouble sitting in bed due to pain. States pain worsens with movement of her arms. She denies any radiation to the legs or arms. Denies numbness, tingling, weakness in the legs. Denies numbness and tingling in the groin and buttock region. Denies loss of bowel function. Does admit 2 to 3 episodes of urinary incontinence. Patient states during these episodes she was in a lot of pain which may have caused her to not get to the bathroom in time but she also states she may have had incontinence due to feeling bloated while walking. Patient taking [place], tramadol, and Flexeril with little relief. She denies fever, chills, urinary symptoms, weight loss. - Related Data Home Medications Medication Instructions Recorded Confirmed Multivit-Min/Iron/Folic/Lutein 1 each PO DAILY 11/15/17 10/26/21 [Centrum Silver Women Tablet] Omeprazole 20 mg PO DAILY 11/15/17 10/26/21 amLODIPine [Norvasc] 10 mg PO DAILY 11/15/17 10/26/21 Cholecalciferol (Vitamin D3) 4,000 unit PO DAILY 03/29/19 10/26/21 [Vitamin D3] Cyclobenzaprine [Flexeril] 10 mg PO HS PRN 03/29/19 10/26/21 Ferrous Sulfate [Iron] 325 mg PO DAILY 03/29/19 10/26/21 Levothyroxine Sodium [Synthroid] 50 mcg PO DAILY 03/29/19 10/26/21 metFORMIN HCL [Glucophage Xr] 500 mg PO TID 03/29/19 10/26/21 traMADol HCL [Ultram] 50 mg PO HS PRN 03/29/19 10/26/21 ALPRAZolam [Xanax] 0.5 mg PO BID PRN 08/31/21 10/26/21 Latanoprost/Pf [Latanoprost 0.005% 1 drop BOTH EYES QAM 08/31/21 10/26/21 Eye Drop] ALPRAZolam [Xanax] 1 mg PO BID PRN 10/22/21 10/26/21 Previous Rx's Medication Instructions Recorded Bisoprolol [Zebeta] 10 mg PO DAILY #30 tab 10/30/21 Docusate [Colace] 100 mg PO BID #30 capsule 10/30/21 HYDROcodone/APAP 5-325MG [[place] 1 tab PO Q6HR PRN 3 Days #12 tab 10/30/21 5-325] Losartan [Cozaar] 100 mg PO DAILY #30 tab 10/30/21 hydroCHLOROthiazide [Hydrodiuril] 25 mg PO DAILY #30 tab 10/30/21 Amoxic-Pot Clav 875-125Mg 1 tab PO Q12HR 10 Days #20 tab 02/20/22 [Augmentin 875-125] Allergies Allergy/AdvReac Type Severity Reaction Status Date / Time No Known Allergies Allergy Verified 07/18/22 11:04 Review of Systems ROS Statement: Those systems with pertinent positive or pertinent negative responses have been documented in the HPI. ROS Other: All systems not noted in ROS Statement are negative. Past Medical History Past Medical History: Diabetes Mellitus, GERD/Reflux, Hypertension, Pneumonia, Thyroid Disorder Additional Past Medical History / Comment(s): frequent bowel movements, hx migraines, precanerous polyp, "low iron", + COVID 09/07/21. pt currently on antibiotics for UTI History of Any Multi-Drug Resistant Organisms: None Reported Past Surgical History: Appendectomy, Bladder Surgery, Cardiac Ablation, Hernia Repair, Hysterectomy Additional Past Surgical History / Comment(s): salavary gland removal right side. colon resection Past Anesthesia/Blood Transfusion Reactions: Family History of Problems w/ Anesthesia Additional Past Anesthesia/Blood Transfusion Reaction / Comment(s): daughter and sisters PONV Past Psychological History: Anxiety Smoking Status: Former smoker Past Alcohol Use History: None Reported Past Drug Use History: None Reported - Past Family History Daughter(s) Family Medical History: Cancer Sister(s) Family Medical History: Cancer General Exam Limitations: no limitations General appearance: alert, in distress (pain) Respiratory exam: Present: normal lung sounds bilaterally. Absent: respiratory distress, wheezes, rales, rhonchi, stridor Cardiovascular Exam: Present: regular rate, normal rhythm, normal heart sounds. Absent: systolic murmur, diastolic murmur, rubs, gallop, clicks Extremities exam: Present: normal inspection, full ROM, normal capillary refill. Absent: tenderness, pedal edema, joint swelling Back exam: Present: normal inspection, paraspinal tenderness (lumbar b/l), vertebral tenderness (lumbar). Absent: full ROM (limited due to pain) Neurological exam: Present: alert, oriented X3, CN II-XII intact Psychiatric exam: Present: normal affect, normal mood Course Vital Signs 07/18/22 07/18/22 11:00 14:06 Temperature 97.1 F L Pulse Rate 72 67 Respiratory 18 17 Rate Blood Pressure 197/88 171/89 O2 Sat by Pulse 98 94 L Oximetry Medical Decision Making - Medical Decision Making This is a 66-year-old female presenting with back pain. Patient appears to be very uncomfortable. No radicular symptoms. No saddle anesthesia. No extremity weakness. Postvoid residual at 170 mL. Good rectal tone. CT of the lumbar spine which was interpreted by me which is most significant for presence of bulging disc at L4- L5 and prominent dorsal epidural fat contributes to a moderate to severe focal compression of the thecal sac. It also shows lumbar/S1 degenerative disc disease, and variable mild neural foraminal narrowing of the lower lumbar spine. Patient treated with Toradol, Norflex, lidocaine patch. Reevaluation patient reports no relief. With this and in the presence of urinary incontinence and retention, I did speak with Dr. Holman personally about this case. Unfortunately Dr. Holman was unable to get ahold of Dr. Bueno who is not on-call today. I then talked to Giulia Romero who spoke with Dr. Lubin personally. Unfortunately MRI could not be performed until tomorrow. With emergent need for MRI, she did recommend transfer.Case discussed with Dr. Hernandez at [facility] who accepts transfer for cauda equina rule out. Patient given Dilaudid prior to transfer was just control pain. Patient will be transferring in private vehicle. Dr. Collier is my attending. Disposition Clinical Impression: Bulging lumbar disc, Urinary incontinence, Urinary retention, Back pain Disposition: OTHER INSTITUTION NOT DEFINED Condition: Stable Referrals: Gm Rock DO [Primary Care Provider] - 1-2 days - Out of Hospital Transfer - Req. Specs Out of Hospital Transfer - Requested Specifics: Other Emergency Center ([facility])
--- NOTE | 2022-07-18 12:15 | CT ---
EXAMINATION TYPE: CT lumbar spine wo con DATE OF EXAM: 07/18/2022 COMPARISON: None HISTORY: 66-year-old female with low back pain started 4-5 days ago. TECHNIQUE: Contiguous axial scanning of the lumbar spine without IV contrast. Coronal and sagittal re constructions performed. CT DLP: 1645.4 mGycm Automated exposure control for dose reduction was used. FINDINGS: Liver appears enlarged with diffuse low-attenuation. Correlate for moderate to severe hepatic steatos is. Slightly malrotated right kidney. Sigmoid diverticulosis. Vertebral body heights are preserved. Hypertrophic facet arthropathy mid to lower lumbar spine with grade 1 anterolisthesis L4-L5. Disc bul ge at this level and prominent dorsal epidural fat instruments to possible focal moderate to severe t hecal sac compression, axial image 70. Moderate degenerative disc space narrowing L5-S1. Disc osteophyte complex here, eccentric towards the right. No significant spinal canal stenosis here. On the left, changes result in mild neural foraminal narrowing at L4-L5. On the right, changes within mild neuroforaminal stenosis at L4-L5 and L5-S1. IMPRESSION: 1. PRONOUNCED HYPERTROPHIC FACET ARTHROPATHY LOWER LUMBAR SPINE. DEGENERATIVE GRADE 1 ANTEROLISTHESIS L4-L5 WITH MILD DEGENERATIVE DISC DISEASE HERE. 2. ALSO AT L4-L5, THE PRESENCE OF BULGING DISC AND PROMINENT DORSAL EPIDURAL FAT CONTRIBUTES TO A MOD ERATE TO SEVERE FOCAL COMPRESSION OF THE THECAL SAC. 3. MODERATE DEGENERATIVE DISC DISEASE L5-S1. 4. VARIABLE MILD NEUROFORAMINAL NARROWING LOWER LUMBAR SPINE OUTLINED ABOVE. 5. THERE APPEARS TO BE HEPATOMEGALY WITH AT LEAST MODERATE HEPATIC STEATOSIS. CORRELATION WITH LFT's, LIPID PROFILE, AND PATIENT RISK FACTORS. SIGMOID DIVERTICULOSIS.
[2022-07-18] MEDS ORDERED: HYDROmorphone 0.5 MG/0.5 ML SYRINGE IVP STA ×2 (12:30→13:27)
[2022-07-18 16:11] VITALS: BP 167/94; PULSE 81; RESP 15
== END 2022-07-18 16:11 | disposition other institution (70) ==
LOC: EC 10:59
DX: M51.36 Other intervertebral disc degeneration, lumbar region (principal); R33.9 Retention of urine, unspecified; R32 Unspecified urinary incontinence; E11.9 Type 2 diabetes mellitus without complications; K21.9 Gastro-esophageal reflux disease without esophagitis; I10 Essential (primary) hypertension; Z79.890 Hormone replacement therapy; Z79.83 Long term (current) use of bisphosphonates; E07.9 Disorder of thyroid, unspecified; F41.9 Anxiety disorder, unspecified; Z87.891 Personal history of nicotine dependence; Z79.84 Long term (current) use of oral hypoglycemic drugs; Z79.899 Other long term (current) drug therapy
CPT/HCPCS: 99285; 96374; 96375 ×2; 51798; 72131; J2360; J1885; J1170

== ENCOUNTER → 2022-09-29 | Outpatient (CLI) | payer MEDICARE ==
--- NOTE | 2022-09-29 14:57 | MM ---
Reason for Exam: Screening (asymptomatic). Last mammogram was performed 1 year(s) and 1 month(s) ago. Patient History: Menarche at age 13. First Full-Term at age 15. Hysterectomy at age 41. Estrogen for 6 years, 2 months, from age 52 until age 58. Hormonal Contraceptives for 12 years from age 18 until age 30. 06/01/2010, Benign Cyst Aspiration on the right side. 09/19/2006, Benign Core Biopsy on the left side. Maternal aunt had breast cancer, age 60. Sister had breast cancer, age 50. Risk Values: Rasheeda 5 year model risk: 3.7%. NCI Lifetime model risk: 12.8%. Prior Study Comparison: 09/01/2021 Bilateral Screening Mammogram, [facility]. 09/04/2021 Left Diagnostic Mammogram, [facility]. 04/22/2022 Left MG 3D diag mammo w/cad , [facility]. Tissue Density: The breast tissue is heterogeneously dense. This may lower the sensitivity of mammography. Findings: Analyzed By CAD. Left biopsy clip. There is no suspicious group of microcalcifications or new suspicious mass in either breast. Overall Assessment: Negative, BI-RAD 1 Management: Screening Mammogram of both breasts in 1 year. A clinical breast exam by your physician is recommended on an annual basis and results should be correlated with mammographic findings. [facility] will attempt to contact patient to return for supplemental views and ultrasound if indicated. Electronically signed and approved by: Gallito England DO
== END | disposition home or self-care (01) ==
LOC: RADMAMWWP 14:33
PROVIDERS: ATTEND Family Medicine
DX: Z12.31 Encounter for screening mammogram for malignant neoplasm of breast (principal); Z80.3 Family history of malignant neoplasm of breast
CPT/HCPCS: 77063; 77067

== ENCOUNTER 2023-08-16 08:11 | Day surgery (SDC) | payer MEDICARE ==
[~2023-08-16 08:11] MED LIST changes: -ACETAMINOPHEN TAB 500 MG TAB PO PRN; -ALVIMOPAN 12 MG CAPSULE PO PRN; -DEXAMETHASONE SOD PHOSPHATE 4 MG/ML 1 ML VIAL IV ONE; -HEPARIN SODIUM,PORCINE/PF 5,000 UNIT/0.5 ML SYRINGE SQ PRN; -HYDROmorphone 0.5 MG/0.5 ML SYRINGE IVP PRN; +LACTATED RINGERS 1,000 ML IV SCH; -MIDAZOLAM 2 MG/2 ML VIAL IV PRN; -ONDANSETRON 4 MG/2 ML VIAL IVP ONE; -metroNIDAZOLE-NS PMX 500 MG in SALINE 1 100ML.BAG IVPB PRN
[2023-08-16] MEDS ORDERED: LACTATED RINGERS 1,000 ML IV ONE (08:25)
[2023-08-16 08:45] VITALS: RESP 16; TEMP 98.4
[2023-08-16 08:45] LABS: Glucose,Whole Blood 110 mg/dL (70-110)
[2023-08-16] MEDS ORDERED: PROPOFOL 10 MG/ML 20 ML VIAL IV ONE (09:07)
--- NOTE | 2023-08-16 09:12 | P.GSHP ---
History of Present Illness H&P Date: 08/16/23 Chief Complaint: Colon polyps 67-year-old female here today for colonoscopy. She had a colon polyp removed via right colectomy 2 years ago. She was having some diarrhea but that has resolved. Otherwise doing well. Past Medical History Past Medical History: Diabetes Mellitus, GERD/Reflux, Hyperlipidemia, Hypertension, Pneumonia, Thyroid Disorder Additional Past Medical History / Comment(s): frequent bowel movements,, "low iron", + COVID 09/07/21. History of Any Multi-Drug Resistant Organisms: None Reported Past Surgical History: Appendectomy, Bladder Surgery, Bowel Resection, Hernia Repair, Hysterectomy Additional Past Surgical History / Comment(s): salavary gland removal right side. colon resection Past Anesthesia/Blood Transfusion Reactions: No Reported Reaction Additional Past Anesthesia/Blood Transfusion Reaction / Comment(s): daughter and sisters PONV Smoking Status: Former smoker - Past Family History Daughter(s) Family Medical History: Cancer Sister(s) Family Medical History: Cancer Medications and Allergies Home Medications Medication Instructions Recorded Confirmed Type Multivit-Min/Iron/Folic/Lutein 1 each PO DAILY 11/15/17 08/16/23 History [Centrum Silver Women Tablet] Omeprazole 20 mg PO DAILY 11/15/17 08/16/23 History amLODIPine [Norvasc] 10 mg PO DAILY 11/15/17 08/16/23 History Cholecalciferol (Vitamin D3) 4,000 unit PO DAILY 03/29/19 08/16/23 History [Vitamin D3] Ferrous Sulfate [Iron] 325 mg PO DAILY 03/29/19 08/16/23 History Levothyroxine Sodium [Synthroid] 50 mcg PO DAILY 03/29/19 08/16/23 History metFORMIN HCL [Glucophage Xr] 1,000 mg PO BID 03/29/19 08/16/23 History Latanoprost/Pf [Latanoprost 0.005% 1 drop BOTH EYES QAM 08/31/21 08/16/23 History Eye Drop] Bisoprolol [Zebeta] 10 mg PO DAILY #30 tab 10/30/21 08/16/23 Rx Losartan [Cozaar] 100 mg PO DAILY #30 tab 10/30/21 08/16/23 Rx Metoprolol Tartrate [Lopressor] 100 mg PO HS 08/10/23 08/16/23 History Probiotic(Unk) 1 tab PO DAILY 08/10/23 08/16/23 History Rosuvastatin Calcium 5 mg PO HS 08/10/23 08/16/23 History Semaglutide [Ozempic] 1 dose INJ MO 08/10/23 08/16/23 History cloNIDine HCL 0.2 mg PO BID PRN 08/10/23 08/16/23 History Allergies Allergy/AdvReac Type Severity Reaction Status Date / Time No Known Allergies Allergy Verified 08/16/23 08:33 Surgical - Exam Vital Signs Temp Pulse Resp BP Pulse Ox 98.4 F 70 16 167/83 96 08/16/23 08:31 08/16/23 08:31 08/16/23 08:31 08/16/23 08:31 08/16/23 08:31 Physical exam: General: Well-developed, well-nourished HEENT: Normocephalic, sclerae nonicteric Abdomen: Nontender, nondistended Extremities: No edema Neuro: Alert and oriented Assessment and Plan (1) Colon cancer screening Narrative/Plan: 67-year-old female with history of colon polyps. We'll proceed with colonoscopy at this time. Current Visit: No Status: Acute Code(s): Z12.11 - ENCOUNTER FOR SCREENING FOR MALIGNANT NEOPLASM OF COLON SNOMED Code(s): 496146506
--- NOTE | 2023-08-16 09:23 | P.PCN ---
Date of Procedure: 08/16/23 Procedure(s) Performed: PREOPERATIVE DIAGNOSIS: Screening with history of polyps POSTOPERATIVE DIAGNOSIS: Diverticulosis PROCEDURE: Colonoscopy ANESTHESIA: MAC SURGEON: Abdelrahman López M.D. SPECIMENS: None ENDOSCOPIC PROCEDURE: The patient was placed on the endoscopy table in the left decubitus position. The Olympus colonoscope was inserted into the anus and passed under direct visualization to the ileocolonic anastomosis. From that point the scope was slowly withdrawn inspecting all surfaces carefully. There were no neoplastic inflammatory or polypoid lesions throughout the transverse, descending, sigmoid and rectum. There was left-sided diverticulosis noted. Digital rectal examination was normal. The patient was taken to the recovery room in stable condition per anesthesia guidelines. RECOMMENDATIONS: Resume diet. Repeat colonoscopy 5 years.
[2023-08-16 09:59] VITALS: BP 149/84; PULSE 73
== END 2023-08-16 10:02 | disposition home or self-care (01) ==
LOC: ORWHC2ENDO 08:11
PROVIDERS: ATTEND Surgery
DX: Z12.11 Encounter for screening for malignant neoplasm of colon (principal); K57.30 Diverticulosis of large intestine without perforation or abscess without bleeding; E11.9 Type 2 diabetes mellitus without complications; K21.9 Gastro-esophageal reflux disease without esophagitis; E78.5 Hyperlipidemia, unspecified; I10 Essential (primary) hypertension; Z86.010 Personal history of colon polyps; Z86.16 Personal history of COVID-19; Z90.49 Acquired absence of other specified parts of digestive tract; Z90.710 Acquired absence of both cervix and uterus; Z98.890 Other specified postprocedural states; Z87.891 Personal history of nicotine dependence; Z79.890 Hormone replacement therapy; Z79.84 Long term (current) use of oral hypoglycemic drugs
CPT/HCPCS: G0105; J2704; 45378

== ENCOUNTER → 2024-03-16 | Outpatient (CLI) | payer MEDICARE ==
--- NOTE | 2024-03-18 15:54 | MM ---
Reason for Exam: Screening (asymptomatic). Last mammogram was performed 1 year(s) and 5 month(s) ago. Patient History: Menarche at age 13. First Full-Term at age 15. Hysterectomy at age 41. Estrogen for 6 years, 2 months, from age 52 until age 58. Hormonal Contraceptives for 12 years from age 18 until age 30. 06/01/2010, Benign Cyst Aspiration on the right side. 09/19/2006, Benign Core Biopsy on the left side. Maternal aunt had breast cancer, age 60. Sister had breast cancer, age 50. Risk Values: Rasheeda 5 year model risk: 3.7%. NCI Lifetime model risk: 11.8%. Prior Study Comparison: 09/04/2021 Left Diagnostic Mammogram, [facility]. 04/22/2022 Left MG 3D diag mammo w/cad LT, [facility]. 09/29/2022 Bilateral MG 3D screening mammo w/cad, [facility]. Tissue Density: There are scattered areas of fibroglandular density. Findings: Analyzed By CAD. The pattern is symmetrical. No significant interval change is evident. A core marker is within the left breast. No suspicious groups of microcalcifications, spiculated or lobular masses, architectural distortion or other secondary signs of malignancy are mammographically apparent. Overall Assessment: Benign, BI-RAD 2 Management: Screening Mammogram of both breasts in 1 year. A negative mammogram report should not preclude additional follow up of suspicious palpable abnormalities. Patient should continue monthly self breast exam. A clinical breast exam by your physician is recommended on an annual basis and results should be correlated with mammographic findings. Note on Rasheeda scores and lifetime risk: 1. A Rasheeda score greater than 3% is considered moderate risk. If this is the case, consider specialist referral to assess eligibility for a risk reducing agent. 2. If overall lifetime risk for the development of breast cancer is 20% or higher, the patient may qualify for future screening with alternating mammogram and breast MRI. Electronically signed and approved by: Charlie Puckett D.O. Radiologis
== END | disposition home or self-care (01) ==
LOC: RADMAMWWP 11:11
PROVIDERS: ATTEND Family Medicine
DX: Z12.31 Encounter for screening mammogram for malignant neoplasm of breast (principal); R92.323 Mammographic fibroglandular density, bilateral breasts; Z80.3 Family history of malignant neoplasm of breast
CPT/HCPCS: 77067

== ENCOUNTER → 2025-03-18 | Outpatient (CLI) | payer MEDICARE ==
--- NOTE | 2025-03-18 10:38 | MM ---
Reason for Exam: Screening (asymptomatic). Last screening mammogram was performed 12 month(s) ago. Patient History: Menarche at age 13. First Full-Term at age 15. Hysterectomy at age 41. Estrogen for 6 years, 2 months, from age 52 until age 58. Hormonal Contraceptives for 12 years from age 18 until age 30. 06/01/2010, Benign Cyst Aspiration on the right side. 09/19/2006, Benign Core Biopsy on the left side. Maternal aunt had breast cancer, age 60. Sister had breast cancer, age 50. Risk Values: Rasheeda 5 year model risk: 3.8%. NCI Lifetime model risk: 11.3%. Prior Study Comparison: 04/22/2022 Left MG 3D diag mammo w/cad , [facility]. 09/29/2022 Bilateral MG 3D screening mammo w/cad, [facility]. 03/16/2024 Bilateral MG screening mammo w CAD, [facility]. Tissue Density: There are scattered areas of fibroglandular density. Findings: Analyzed By CAD. Right breast: There is no suspicious group of microcalcifications or new suspicious mass. Left breast: There is no suspicious group of microcalcifications or new suspicious mass. Overall Assessment: Negative, BI-RAD 1 Management: Screening Mammogram of both breasts in [address] [facility] will attempt to contact patient to return for supplemental views and ultrasound if indicated. Patient should continue monthly self-breast exams. A clinical breast exam by your physician is recommended on an annual basis. This exam should not preclude additional follow-up of suspicious palpable abnormalities. Note on Rasheeda scores and lifetime risk: 1. A Rasheeda score greater than 3% is considered moderate risk. If this is the case, consider specialist referral to assess eligibility for a risk reducing agent. 2. If overall lifetime risk for the development of breast cancer is 20% or higher, the patient may qualify for future screening with alternating mammogram and breast MRI. [facility], , 03/18/2025 10:35 AM. Electronically signed and approved by: Gallito England DO
== END | disposition home or self-care (01) ==
LOC: RADMAMWWP 09:19
PROVIDERS: ATTEND Family Medicine
DX: Z12.31 Encounter for screening mammogram for malignant neoplasm of breast (principal); R92.323 Mammographic fibroglandular density, bilateral breasts; Z80.3 Family history of malignant neoplasm of breast; Z92.0 Personal history of contraception
CPT/HCPCS: 77063; 77067